=== PATIENT | male | born 1930 | race Caucasian/White ===

== ENCOUNTER → 2016-05-11 | Outpatient (CLI) | payer MEDICARE, OTHER ==
[2016-05-11 11:42] LABS: ALANINE AMINOTRANSFERASE 22 U/L (21-72); ALBUMIN 4.1 g/dL (3.5-5.0); ALKALINE PHOSPHATASE 105 U/L (38-126); ANION GAP 9 (5-19); ASPARTATE AMINO TRANSFERASE 25 U/L (17-59); BILIRUBIN,TOTAL 0.9 mg/dL (0.2-1.3); BLOOD UREA NITROGEN 22 mg/dL (7-20); CALCIUM 9.5 mg/dL (8.4-10.2); CARBON DIOXIDE 32 mmol/L (22-30); CHLORIDE 104 mmol/L (98-107); CHOLESTEROL 106.81 mg/dL (0-200); CREATININE RESULT 0.93 mg/dL (0.52-1.25); Direct HDL 60 mg/dL (>40); GLUCOSE 85 mg/dL (75-110); SODIUM 145.1 mmol/L (137-145); TOTAL PROTEIN 6.5 g/dL (6.3-8.2); TRIGLYCERIDES 49 mg/dL (<150)
[2016-05-11 11:48] LABS: ABSOLUTE EOSINOPHILS # (AUTO) 0.2 10^3/uL (0.0-0.6); ABSOLUTE LYMPHOCYTES (AUTO) 1.8 10^3/uL (0.5-4.7); ABSOLUTE MONOCYTES (AUTO) 0.5 10^3/uL (0.1-1.4); ABSOLUTE NEUT (AUTO) 3.9 10^3/uL (1.7-8.2); BASOPHILS % (AUTO) 0.3 % (0-2); EOSINOPHILS % (AUTO) 3.2 % (0-6); HEMATOCRIT 43.8 % (37.9-51.0); HEMOGLOBIN 14.2 g/dL (13.5-17.0); HGB HCT DIFFERENCE -1.2; LYMPHOCYTES % (AUTO) 27.9 % (13-45); MEAN CORPUSCULAR HEMOGLOBIN 29.8 pg (27.0-33.4); MEAN CORPUSCULAR HGB CONC 32.5 g/dL (32.0-36.0); MEAN CORPUSCULAR VOLUME 92 fl (80-97); MONOCYTES % (AUTO) 7.4 % (3-13); RED BLOOD COUNT 4.77 10^6/uL (4.35-5.55); RED CELL DISTRIBUTION WIDTH 14.5 % (11.5-14.0); SEGMENTED NEUTROPHILS % (AUTO) 61.2 % (42-78); WHITE BLOOD COUNT 6.3 10^3/uL (4.0-10.5)
[2016-05-11 11:53] LABS: DIRECT LDL 36 mg/dL (<100)
== END ==
LOC: OD 09:03
PROVIDERS: ATTEND Internal Medicine
DX: I25.10 Atherosclerotic heart disease of native coronary artery without angina pectoris (principal); E78.00 Pure hypercholesterolemia, unspecified; Z79.899 Other long term (current) drug therapy
CPT/HCPCS: 36415; 80053; 80061; 85025

== ENCOUNTER 2016-06-21 21:53 | Inpatient (IN) | payer MEDICARE, OTHER ==
[2016-06-21] MEDS ORDERED: ACETAMINOPHEN 325 MG TABLET PO ONE (22:13)
--- NOTE | 2016-06-21 22:16 | ER Document Report ---
ED General - General Stated Complaint: FEVER Time seen by provider: 22:15 Notes: Patient is an 85-year-old male that comes to the emergency department by EMS for chief complaint of a fever, fever 101.6 recorded by EMS, EMS gave 650 mg Tylenol. Patient states for almost 1 week he has felt poorly but began running a fever within the past 12 hours. Patient has had a mild cough developing today , denies any other symptoms including vomiting, abdominal pain, chest pain, headache. He states he was constipated but took stool softeners and this resolved. Patient has not had influenza vaccine. Past medical history of [place] with stents, atrial fibrillation, denies history of diabetes. TRAVEL OUTSIDE OF THE [place] IN LAST 30 DAYS: No - Related Data Allergies/Adverse Reactions: No Known Allergies Allergy (Verified 06/22/16 01:57) Home Medications: Current Home Medications Amiodarone HCl [Cordarone 200 mg Tablet] 200 mg PO DAILY 06/22/16 [History] Amlodipine Besylate 5 mg PO DAILY 06/22/16 [History] Apixaban [Eliquis 5 mg Tablet] 5 mg PO BID 06/22/16 [History] Docusate Sodium [Stool Softener] 50 mg PO QHS PRN 06/22/16 [History] Past Medical History - General Information source: Patient - Social History Smoking Status: Never Smoker Frequency of alcohol use: None Drug Abuse: None Lives with: Family Family History: None - Past Medical History Cardiac Medical History: Reports: Hx Heart Attack, Hx Hypertension Pulmonary Medical History: Denies: Hx Asthma Neurological Medical History: Denies: Hx Cerebrovascular Accident, Hx Seizures Renal/ Medical History: Reports: Hx Kidney Stones Malignancy Medical History: 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 Denies: Hx Hepatitis, Hx Ulcer Infectious Medical History: Denies: Hx Hepatitis Past Surgical History: Reports: Hx Cardiac Catheterization - coronary artery stents x3, Hx Open Heart Surgery - HEART CATH. Denies: Hx Pacemaker - Immunizations Hx Diphtheria, Pertussis, Tetanus Vaccination: Yes Review of Systems - Review of Systems Constitutional: See HPI EENT: No symptoms reported Cardiovascular: No symptoms reported Respiratory: See HPI Gastrointestinal: No symptoms reported Genitourinary: No symptoms reported Male Genitourinary: No symptoms reported Musculoskeletal: No symptoms reported Skin: No symptoms reported Hematologic/Lymphatic: No symptoms reported Neurological/Psychological: No symptoms reported Physical Exam - Vital signs Vitals: Temp Pulse Resp BP Pulse Ox 102.1 F H 106 H 19 144/75 H 91 L 06/21/16 22:00 06/21/16 22:00 06/21/16 22:00 06/21/16 22:00 06/21/16 22:00 - General General appearance: Alert Notes: Patient flushed and has very mild tachypnea, otherwise he is responsive, alert, and well-appearing - HEENT Head: Normocephalic, Atraumatic Eyes: Normal Extraocular movements intact: Yes Eyelashes: Normal Pupils: PERRL Sinus: Normal Nasal: Normal Mouth/Lips: Normal Mucous membranes: Normal Pharynx: Normal Neck: Normal - Respiratory Respiratory status: No respiratory distress, Tachypnea - Borderline. No: Respiratory distress, Labored Breath sounds: Nonproductive cough, Other - Scattered coarse breath sounds and a few rhonchi. No: Wheezing - Cardiovascular Rhythm: Regular, Tachycardia Heart sounds: Normal auscultation, S1 appreciated, S2 appreciated - Abdominal Inspection: Normal Tenderness: Nontender. No: Tender, Guarding - Completely soft and benign abdomen - Back Back: Normal. No: Tender - Extremities General upper extremity: Normal inspection, Nontender, Normal strength, Normal temperature General lower extremity: Normal inspection, Nontender, Normal strength, Normal temperature - Neurological Neuro grossly intact: Yes Cognition: Normal Orientation: AAOx4. 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 placing on nasal cannula because of patient being hypoxic at about 90-91% on room air. Patient clinically appears to have pneumonia with rhonchi, fever, cough, however chest x-ray is unremarkable, CBC shows mild elevation of neutrophils but no leukocytosis. CBC and chemistry generally unremarkable otherwise. Lactic acid is not elevated, blood cultures pending. Patient given Levaquin antibiotic. Patient looks improved on reevaluation, however if the nasal cannula is removed he becomes hypoxic again, down to 89%. Patient is also very weak though he does not appear to be in any distress. He is denying any current symptoms. Discussed with Dr. Marie per [facility] protocol. Discussed with Dr. Romero, internal medicine, patient will be admitted to the hospital. - Vital Signs Vital signs: Temp Pulse Resp BP Pulse Ox 101.3 F H 106 H 27 H 119/42 L 95 06/21/16 23:44 06/21/16 22:00 06/22/16 01:31 06/22/16 01:31 06/22/16 01:31 - Laboratory Result Diagrams: 06/21/16 22:26 06/22/16 00:15 Laboratory results interpreted by me: 06/21/16 06/21/16 06/21/16 22:26 22:26 22:57 Hgb 13.0 L RDW 14.5 H Plt Count 145 L Seg Neutrophils % 80.2 H Lymphocytes % 8.5 L PT 18.7 H VBG pH Total Protein Albumin Urine Protein 30 H Urine Urobilinogen 4.0 H 06/22/16 06/22/16 00:15 00:15 Hgb RDW Plt Count Seg Neutrophils % Lymphocytes % PT VBG pH 7.46 H Total Protein 5.6 L Albumin 3.3 L Urine Protein Urine Urobilinogen Discharge - Discharge Clinical Impression: Cough, Hypoxia Fever Qualifiers: Fever type: unspecified Qualified Code(s): R50.9 - Fever, unspecified Condition: Stable Disposition: ADMITTED INPATIENT Admitting Provider: Hospitalist Unit Admitted: Telemetry
[2016-06-21 22:45] LABS: ABSOLUTE EOSINOPHILS # (AUTO) 0.1 10^3/uL (0.0-0.6); ABSOLUTE LYMPHOCYTES (AUTO) 0.6 10^3/uL (0.5-4.7); ABSOLUTE MONOCYTES (AUTO) 0.7 10^3/uL (0.1-1.4); ABSOLUTE NEUT (AUTO) 5.8 10^3/uL (1.7-8.2); BASOPHILS % (AUTO) 0.6 % (0-2); EOSINOPHILS % (AUTO) 1.3 % (0-6); LYMPHOCYTES % (AUTO) 8.5 % (13-45); MEAN CORPUSCULAR HEMOGLOBIN 29.5 pg (27.0-33.4); MEAN CORPUSCULAR HGB CONC 32.4 g/dL (32.0-36.0); MEAN CORPUSCULAR VOLUME 91 fl (80-97); MONOCYTES % (AUTO) 9.4 % (3-13); RED CELL DISTRIBUTION WIDTH 14.5 % (11.5-14.0); SEGMENTED NEUTROPHILS % (AUTO) 80.2 % (42-78); WHITE BLOOD COUNT 7.3 10^3/uL (4.0-10.5)
[2016-06-21 22:55] LABS: PROTHROMBIN TIME 18.7 SEC (11.4-15.4)
[2016-06-21] MEDS ORDERED: LEVOFLOXACIN 750 MG/D5W RTU 150 ML IV ONE (23:04)
[2016-06-21 23:27] LABS: APPEARANCE,URINE CLOUDY; BILIRUBIN,URINE NEGATIVE (NEGATIVE); GLUCOSE, URINE NEGATIVE (NEGATIVE); KETONES,URINE NEGATIVE (NEGATIVE); LEUKOCYTE ESTERASE,URINE NEGATIVE (NEGATIVE); NITRITE,URINE NEGATIVE (NEGATIVE); PROTEIN,URINE 30 mg/dL (NEGATIVE); URINE SPECIFIC GRAVITY 1.014
--- NOTE | 2016-06-21 23:48 | EKG REPORT ---
SEVERITY:- OTHERWISE NORMAL ECG - SINUS TACHYCARDIA MINIMAL ST DEPRESSION, LATERAL LEADS : Confirmed by: Janina Wallace 21-Jun-2016 23:47:17
[2016-06-22 00:30] LABS: VENOUS BLOOD BASE EXCESS 3.4 mmol/L; VENOUS BLOOD HCO3 27.4 mmol/L (20-32); VENOUS BLOOD PCO2 39.7 mmHg (35-63); VENOUS BLOOD PH 7.46 (7.30-7.42)
[2016-06-22 00:43] LABS: ALANINE AMINOTRANSFERASE 34 U/L (21-72); ALBUMIN 3.3 g/dL (3.5-5.0); ALKALINE PHOSPHATASE 83 U/L (38-126); ANION GAP 8 (5-19); ASPARTATE AMINO TRANSFERASE 22 U/L (17-59); BILIRUBIN,TOTAL 0.8 mg/dL (0.2-1.3); BLOOD UREA NITROGEN 15 mg/dL (7-20); CALCIUM 8.8 mg/dL (8.4-10.2); CARBON DIOXIDE 27 mmol/L (22-30); CHLORIDE 104 mmol/L (98-107); CREATININE RESULT 0.93 mg/dL (0.52-1.25); GLUCOSE 103 mg/dL (75-110); POTASSIUM 4.4 mmol/L (3.6-5.0); SODIUM 138.7 mmol/L (137-145); TOTAL PROTEIN 5.6 g/dL (6.3-8.2)
[2016-06-22] MEDS ORDERED: NORMAL SALINE 1000 ML 500 ML IV ONE (01:26)
--- NOTE | 2016-06-22 03:48 | PDOC H&P ---
History of Present Illness Admission Date/PCP: 06/22/16 02:17 Sim[facility] [place] Patient complains of: fever History of Present Illness: TONY MANE is a 85 year old male, with underlying atrial fibrillation, on Eliquis for same, coronary artery disease, having undergone implantation of 3 stents in the past, hypertension, arthritis, distant history of peptic ulcer disease, and history of nephrolithiasis, easy bruising, but without known chronic pulmonary disease who presents to the emergency room for evaluation of above complaint. [place] "poorly" for the past week, but over the last day or so, has run a subjective fever. 101.6 recorded by EMS, with 650 mg of Tylenol given. Mildly productive cough over the last 24 hours but otherwise, no specific complaints including nausea vomiting, chest or abdominal pain, or headache. No specific sick contacts. Has not had a flu vaccination. No hospitalization in the 3 months. Took a Z-Shaun, perhaps in the last 3 months, for an episode of sinusitis. Patient has been discussed with emergency room nurse practitioner who evaluated the patient. . Laboratory results are listed in [facility] and are reviewed. X-ray summary results are listed below, with full report(s) reviewed. . EKG reviewed. Social history/personal habits: . Lives at home with , who has dementia. Retired. No use of alcohol tobacco or illicit drugs. Allergies/adverse reactions NKDA. Home medications are reviewed by bottle review and have been reconciled by nursing staff in [facility]. Home medications initially autopopulated into [facility] may not accurately reflect patient's true medications, dosages, and/or frequencies. REVIEW OF SYSTEMS: Constitutional: See history and present illness. Eyes: Wears glasses. ENT: No swallowing problems or complaints. Partial hearing loss. Pulmonary: See history and present illness. Cardiovascular: No current complaints, including chest pain. Gastrointestinal: No current complaints, including nausea or vomiting. Skin: No current complaints, including rashes. Hematologic: Easy bruising. Neurologic: No current complaints, including numbness or tingling. Musculoskeletal: Joint pain from arthritis. Psychiatric: No current complaints, including anxiety or depression. Endocrine: No current complaints, including polyuria. Genitourinary: No current complaints, including dysuria. PHYSICAL EXAMINATION: 5 feet 6 inches tall. 83 kg. BMI 29.5 kg/m. Temperature 101.3. 134/72. Pulse 68 and regular. Respirations are 28 and unlabored. O2 saturation 88-93% on 3 L oxygen per nasal cannula. Slightly overweight otherwise well-nourished well-developed elderly male appearing approximately his stated age. Pleasant awake alert and cooperative. Appears not to feel very well. Mildly anxious, without agitation. 2 daughters are present at his side; patient approves. Skin is warm and dry. No grossly obvious evidence of rash in areas of skin examined. No subcutaneous nodules palpated. ENT: Perhaps Mildly hard of hearing to normal conversation. Tongue midline on protrusion pink and slightly tacky. Eyes: No scleral icterus. Pupils equal and reactive to light at 4 mm. [place] conjunctivae. Neck is supple and nontender to gentle active range of motion and palpation. Midline trachea. No palpable thyroid nodule mass enlargement or tenderness. Lymphatic: No palpable cervical or clavicular nodes. Neck and lymphatic exams limited by patient body habitus. Psychiatric: Reasonable insight into acute and chronic medical issues. Oriented to time location and why here. Lungs: Auscultation reveals equal breath sounds bilaterally. No use of accessory respiratory muscles. Slightly coarse breath sounds bilaterally, perhaps a bit more pronounced on the left. Cardiovascular: Heart regular rate and rhythm, without gallop murmur or rub. No carotid or abdominal aortic bruits. Very mild symmetric nonpitting ankle and pedal edema. Faintly palpable dorsalis pedis pulses. Abdomen: soft, , slightly distended nontender with positive bowel sounds. Unable to adequately evaluate abdomen for masses or organomegaly due to distention. Extremities: Feet are warm and dry. No calf tenderness to compression. No grossly obvious visual evidence of calf swelling. Gentle manipulation of lower extremities fails to reveal any obvious evidence of injury or instability to knees hips or ankles. Neurologic: Moves upper extremities grossly normally. Patellar reflexes absent. Absent Babinski. Light touch is intact at feet. Dorsiflexion and plantarflexion of feet 5 / 5 and symmetric. Past Medical History Cardiac Medical History: Reports: Atrial Fibrillation, Coronary Artery Disease, Myocardial Infarction, Hypertension Denies: Congestive Heart Failure, DVT, Pulmonary Embolism Pulmonary Medical History: Denies: Asthma, Chronic Obstructive Pulmonary Disease (COPD) EENT Medical History: Reports: Eyes - Glasses, Ears - Hearing aids Denies: Throat Neurological Medical History: Denies: Hemorrhagic CVA, Ischemic CVA, Seizures Endocrine Medical History: Denies: Diabetes Mellitus Type 1, Diabetes Mellitus Type 2, Hyperthyroidism, Hypothyroidism Renal/ Medical History: Reports: Nephrolithiasis - History of same. Patient thinks he in the recent past may have passed a kidney stone, with some discomfort and a small amount of bright red blood on his underwear. Daughters are aware. Malignancy Medical History: Reports: Skin Cancer - basal cell GI Medical History: Reports: Hiatal Hernia, Peptic Ulcer Disease - Quite distant history of bleeding peptic ulcer. Denies: Cirrhosis, Hepatitis Musculoskeltal Medical History: Reports: Arthritis Skin Medical History: Reports: Other - Skin cancer. Psychiatric Medical History: Denies: Alcohol Dependency, Depression, General Anxiety Disorder, Substance Abuse, Tobacco Dependency Hematology: Reports: Other - Easy bruising. Denies: Anemia, Sickle Cell Disease Infectious Medical History: Denies: Hepatitis B, Hepatitis C Past Surgical History Past Surgical History: Reports: Cardiac Catheterization - coronary artery stents x3 Social History Information Source: Patient, Relative, Emergency Med Personnel, [facility] Records Lives with: Spouse/Significant other Smoking Status: Never Smoker Frequency of Alcohol Use: None Drugs: None - Advance Directive Resuscitation Status: Full Code Surrogate healthcare decision maker:: Daughters Family History Family History: None Parental Family History Reviewed: Yes Children Family History Reviewed: Yes Sibling(s) Family History Reviewed.: Yes Medication/Allergy Home Medications: Amiodarone HCl [Cordarone 200 mg Tablet] 200 mg PO DAILY 06/22/16 Amlodipine Besylate [Norvasc 5 mg Tablet] 5 mg PO DAILY 06/22/16 Apixaban [Eliquis 5 mg Tablet] 5 mg PO BID 06/22/16 Aspirin [Aspirin 81 mg Chewable Tablet] 81 mg PO DAILY 06/22/16 Docusate Sodium [Colace 100 mg Capsule] 200 mg PO QHS 06/22/16 Allergies/Adverse Reactions: tramadol Adverse Reaction (Verified 06/26/16 15:02) Delirium Physical Exam Vital Signs: Temp Pulse Resp BP Pulse Ox 101.3 F H 106 H 27 H 119/42 L 95 06/21/16 23:44 06/21/16 22:00 06/22/16 01:31 06/22/16 01:31 06/22/16 01:31 Results Impressions: Chest X-Ray 06/21/16 22:13 IMPRESSION: CHRONIC CHANGES. PROBABLE ATELECTASIS VERSUS SCARRING IN THE LEFT MID LUNG. NO DEFINITE ACUTE FINDINGS. Assessment & Plan - Diagnosis (1) Pneumonia involving left lung Qualifiers: Pneumonia type: due to unspecified organism Lung location: unspecified part of lung Qualified Code(s): J18.9 - Pneumonia, unspecified organism Is this a current diagnosis for this admission?: YesPlan: Patient will be admitted under pneumonia protocol. Incentive spirometry twice a day. PRN DuoNeb's. Antibiotics will consist of intravenous Zithromax and Rocephin.. I strongly encouraged patient to notify staff should patient feel that respiratory status is worsening. Patient is a full code. I have strongly encouraged patient not to get out of bed without notifying staff , , to avoid a fall with injury. Knee high SCDs for DVT prophylaxis; with patient on Eliquis, no need for Lovenox or heparin. Impression and plans were discussed with patient, and daughters, all of whom concur. Time spent in evaluation and management of patient: 68 minutes. (2) Anticoagulated Is this a current diagnosis for this admission?: YesPlan: Resume home medications as appropriate once these have been reviewed. (3) Atrial fibrillation Qualifiers: Atrial fibrillation type: unspecified Qualified Code(s): I48.91 - Unspecified atrial fibrillation Is this a current diagnosis for this admission?: YesPlan: Hemodynamically stable at present.Resume home medications as appropriate once these have been reviewed. (4) CAD (coronary artery disease) Qualifiers: Coronary Disease-Associated Artery/Lesion type: [place] artery [place] vs. transplanted heart: [place] heart Associated angina: without angina Qualified Code(s): I25.10 - Atherosclerotic heart disease of [place] coronary artery without angina pectoris Is this a current diagnosis for this admission?: YesPlan: Resume home medications as appropriate once these have been reviewed. - Inpatient Certification Based on my medical assessment, after consideration of the patient's comorbidities, presenting symptoms, or acuity I expect that the services needed warrant INPATIENT care.: Yes I certify that my determination is in accordance with my understanding of Medicare's requirements for reasonable and necessary INPATIENT services [42 CFR 412.3e].: Yes Medical Necessity: Need Close Monitoring Due to Risk of Patient Decompensation, Need For Continuous Telemetry Monitoring, Need for Nebulizer Therapy and Monitoring of Response, Need for IV Antibiotics, Risk of Complication if Not Cared For in Hospital, Risk of Diagnosis Which Will Require Inpatient Eval/Care/ Monitoring Post Hospital Care: D/C or Transfer Summary
[2016-06-22] MEDS ORDERED: SUCCINYLCHOLINE CHLORIDE INJ 200 MG/10 ML VIAL ONE (07:54)
[2016-06-22 09:42] LABS: PROTHROMBIN TIME 19.8 SEC (11.4-15.4)
[2016-06-22] MEDS ORDERED: AMIODARONE HCL 200 MG TABLET PO SCH (10:00)
[2016-06-22] MEDS ORDERED: ASPIRIN 81 MG TABLET, CHEWABLE PO SCH (10:00)
[2016-06-22] MEDS ORDERED: AMLODIPINE BESYLATE 5 MG TABLET PO SCH (10:00)
[2016-06-22] MEDS ORDERED: NORMAL SALINE 1000 ML 1,000 ML IV PRN ×2 (12:41→19:46)
[2016-06-22] MEDS: ACETAMINOPHEN 325 MG TABLET PO PRN ×2 (13:04→18:20)
[2016-06-22] MEDS: LEVALBUTEROL HCL NEB 1.25 MG/3 ML AMPUL NEB PRN ×2 (13:51→19:22)
[2016-06-22] MEDS: DOCUSATE SODIUM 100 MG CAPSULE PO SCH ×2 (14:18→17:44)
[2016-06-22] MEDS ORDERED: AZITHROMYCIN 500 MG in DEXTROSE 5%-WATER 250 ML IV ONE (16:00)
[2016-06-22] MEDS ORDERED: APIXABAN 5 MG TABLET PO SCH (18:00)
[2016-06-22] MEDS ORDERED: CEFTRIAXONE 1 GM/D5W RTU 1 GM/50 ML RTUPB IV SCH (18:00)
[2016-06-22] MEDS ORDERED: IBUPROFEN 600 MG TABLET PO PRN (18:59)
[2016-06-22] MEDS ORDERED: FUROSEMIDE INJ/PF 40 MG/4 ML SDV ONE (19:17)
[2016-06-22] MEDS ORDERED: LORAZEPAM INJ 2 MG/1 ML VIAL IV PRN (19:25)
[2016-06-22] MEDS ORDERED: LORAZEPAM INJ 2 MG/1 ML VIAL ONE (19:26)
--- NOTE | 2016-06-22 19:51 | Progress Note ---
Provider Note Provider Note: Patient newly admitted for pneumonia, developed high fever and seizure-like activity requiring rapid response. Patient noted with chest congestion as well and temperature was 104-105 reported by a rectal probe. Patient given Tylenol as well as ibuprofen, placed on cooling blanket, intravenous Ativan as needed for seizure-like activity, and one dose of Lasix. IV fluid increased. CT of the head without contrast ordered. Patient transferred to the intensive care unit. He is on anticoagulant and this was held.
[2016-06-22] MEDS ORDERED: FUROSEMIDE INJ/PF 40 MG/4 ML SDV IV ONE (20:00)
[2016-06-22] MEDS ORDERED: MIDAZOLAM HCL 100 ML IV ONE (21:38)
[2016-06-22] MEDS ORDERED: ALBUTEROL SULFATE 0.083% NEB 2.5 MG/3 ML AMPUL NEB PRN (21:52)
[2016-06-22] MEDS ORDERED: AMLODIPINE BESYLATE 5 MG TABLET NG SCH (21:54)
[2016-06-22] MEDS ORDERED: PROPOFOL INJ 200 MG/20 ML VIAL IV ONE (21:54)
[2016-06-22] MEDS ORDERED: APIXABAN 5 MG TABLET NG SCH (21:58)
[2016-06-22] MEDS ORDERED: DOXYCYCLINE HYCLATE 100 MG in DEXTROSE 5%-WATER 250 ML IV SCH (22:00)
[2016-06-22] MEDS ORDERED: GUAIFENESIN 600 MG TABLET.SA PO SCH (22:00)
[2016-06-22] MEDS ORDERED: DOCUSATE SODIUM 100 MG CAPSULE PO SCH (22:00)
[2016-06-22] MEDS ORDERED: PHARMACY COMMUNICATION ORDER MC NR (22:00)
[2016-06-22 22:10] LABS: ARTERIAL BLOOD BASE EXCESS -3.5 mmol/L; ARTERIAL BLOOD O2 SATURATION 96.8 % (94-98)
[2016-06-22] MEDS ORDERED: VANCOMYCIN HCL 0 MG in DEXTROSE 5%-WATER 250 ML IV NR (22:15)
[2016-06-22] MEDS ORDERED: PIPERACILLIN/TAZOBACTAM 4.5 GM VIAL IV PRN (22:27)
[2016-06-22 22:31] LABS: HEMATOCRIT 37.8 % (37.9-51.0); HEMOGLOBIN 12.4 g/dL (13.5-17.0); HGB HCT DIFFERENCE -0.6; MEAN CORPUSCULAR HEMOGLOBIN 29.9 pg (27.0-33.4); MEAN CORPUSCULAR HGB CONC 32.8 g/dL (32.0-36.0); MEAN CORPUSCULAR VOLUME 91 fl (80-97); RED BLOOD COUNT 4.14 10^6/uL (4.35-5.55); RED CELL DISTRIBUTION WIDTH 14.3 % (11.5-14.0)
[2016-06-22] MEDS ORDERED: VANCOMYCIN HCL INJ 1000 MG VIAL IV PRN (22:37)
[2016-06-22] MEDS ORDERED: VANCOMYCIN HCL INJ 500 MG VIAL IV PRN (22:37)
[2016-06-22 22:43] LABS: ANION GAP 13 (5-19); BLOOD UREA NITROGEN 16 mg/dL (7-20); CALCIUM 8.5 mg/dL (8.4-10.2); CARBON DIOXIDE 24 mmol/L (22-30); CHLORIDE 99 mmol/L (98-107); CREATINE KINASE 356 U/L (55-170); CREATININE RESULT 1.01 mg/dL (0.52-1.25); GLUCOSE 110 mg/dL (75-110); MAGNESIUM 1.9 mg/dL (1.6-2.3); SODIUM 135.5 mmol/L (137-145)
[2016-06-22 22:55] LABS: BAND NEUTROPHILS % (MANUAL) 2 % (3-5); BASOPHILS % (MANUAL) 0 % (0-2); CREATINE KINASE MB 1.66 ng/mL (<4.55); EOSINOPHILS % (MANUAL) 0 % (0-6); LYMPHOCYTES % (MANUAL) 9 % (13-45); TOTAL CELLS COUNTED 100; TOXIC VACUOLATION PRESENT
[2016-06-22 22:57] LABS: TROPONIN I 0.128 ng/mL
[2016-06-22] MEDS ORDERED: LEVOFLOXACIN 750 MG/D5W RTU 750 MG/150 ML RTUPB IV ONE (23:00)
[2016-06-22] MEDS: FAMOTIDINE INJ/PF 20 MG/2 ML SDV IV SCH (23:08)
[2016-06-22] MEDS: DEXTROSE 5%-NORMAL SALINE 1,000 ML IV PRN (23:09)
[2016-06-22] MEDS: MIDAZOLAM HCL 100 ML IV PRN (23:10)
--- NOTE | 2016-06-22 23:19 | Progress Note ---
Provider Note Provider Note: 06/22/2016: Called to see patient by his intensive care unit nurse concerning respiratory distress along with possible seizure activity with tremors. Went to the bedside shortly thereafter. Increased work of breathing. 90% saturation on nonrebreather mask. Rhonchorous breath sounds. Tachypnea, into the 30+ range. Intermittent pronounced tremors of both upper and lower extremities. However, patient did answer basic questions appropriately during these episodes. Decision made to proceed with endotracheal intubation. Performed by STAFF SERVICES MANAGER shortly thereafter. Prior to intubation, I did discuss plans, and rationale for same, with multiple family members, including daughter with blonde hair, in intensive care unit waiting room. They agreed with plans. Postintubation, daughter at bedside. Told her my concern is that of worsening pneumonia. Hemodynamically stable at present time, not requiring vasopressor. 50 minutes critical care time spent in direct patient evaluation, chart review, entering of multiple orders into the electronic health record, chest x-ray review, discussions with nursing staff. Chest x-ray report pending. Discussions with family.
--- NOTE | 2016-06-22 23:36 | EKG REPORT ---
SEVERITY:- ABNORMAL ECG - ATRIAL FIBRILLATION REPOL ABNRM SUGGESTS ISCHEMIA, DIFFUSE LEADS : Confirmed by: Janina Wallace 22-Jun-2016 23:36:05
[2016-06-22] MEDS ORDERED: MIDAZOLAM HCL 100 ML IV PRN (23:57)
[2016-06-23] MEDS ORDERED: VANCOMYCIN HCL 1,500 MG in DEXTROSE 5%-WATER 250 ML IV ONE ×2
[2016-06-23] MEDS ORDERED: VANCOMYCIN HCL INJ 500 MG VIAL ONE (00:53)
[2016-06-23] MEDS ORDERED: VANCOMYCIN HCL INJ 1000 MG VIAL ONE (00:53)
[2016-06-23] MEDS ORDERED: PIPERACILLIN/TAZOBACTAM 4.5 GM VIAL IV ONE (01:02)
[2016-06-23] MEDS: PIPERACILLIN SODIUM/TAZOBACTAM 4.5 GM in NORMAL SALINE 100 ML IV SCH ×4 (01:07→17:56)
[2016-06-23 02:25] LABS: ARTERIAL BLOOD BASE EXCESS 2.4 mmol/L; ARTERIAL BLOOD O2 SATURATION 98.1 % (94-98)
[2016-06-23] MEDS: IPRATROPIUM/ALBUTEROL 0.5-2.5 MG/3 ML AMPUL NEB SCH ×4 (02:55→20:44)
[2016-06-23] MEDS ORDERED: PROPOFOL 100 ML IV ONE (03:42)
[2016-06-23] MEDS ORDERED: PROPOFOL 100 ML IV PRN (03:47)
[2016-06-23] MEDS: ACETAMINOPHEN 325 MG TABLET NG PRN ×3 (04:33→21:26)
[2016-06-23 05:14] LABS: ANION GAP 7 (5-19); BLOOD UREA NITROGEN 17 mg/dL (7-20); CALCIUM 8.1 mg/dL (8.4-10.2); CARBON DIOXIDE 28 mmol/L (22-30); CHLORIDE 99 mmol/L (98-107); CREATININE RESULT 0.97 mg/dL (0.52-1.25); GLUCOSE 128 mg/dL (75-110); POTASSIUM 3.7 mmol/L (3.6-5.0); SODIUM 134.3 mmol/L (137-145)
[2016-06-23 05:31] LABS: ABSOLUTE LYMPHOCYTES (AUTO) 1.2 10^3/uL (0.5-4.7); ABSOLUTE MONOCYTES (AUTO) 0.5 10^3/uL (0.1-1.4); ABSOLUTE NEUT (AUTO) 7.8 10^3/uL (1.7-8.2); BASOPHILS % (AUTO) 0.2 % (0-2); HEMATOCRIT 35.3 % (37.9-51.0); HEMOGLOBIN 11.7 g/dL (13.5-17.0); HGB HCT DIFFERENCE -0.2; LYMPHOCYTES % (AUTO) 12.7 % (13-45); MEAN CORPUSCULAR HEMOGLOBIN 30.1 pg (27.0-33.4); MEAN CORPUSCULAR HGB CONC 33.1 g/dL (32.0-36.0); MEAN CORPUSCULAR VOLUME 91 fl (80-97); MONOCYTES % (AUTO) 4.9 % (3-13); RED BLOOD COUNT 3.89 10^6/uL (4.35-5.55); RED CELL DISTRIBUTION WIDTH 14.3 % (11.5-14.0); SEGMENTED NEUTROPHILS % (AUTO) 82.2 % (42-78); WHITE BLOOD COUNT 9.5 10^3/uL (4.0-10.5)
[2016-06-23] MEDS ORDERED: LANSOPRAZOLE 30 MG TAB.RAP.DR NG SCH (06:00)
[2016-06-23] MEDS ORDERED: LANSOPRAZOLE 30 MG TAB.RAP.DR PO SCH (06:00)
[2016-06-23] MEDS: MIDAZOLAM HCL 100 ML IV PRN ×3 (08:08→16:21)
[2016-06-23] MEDS ORDERED: AMLODIPINE BESYLATE 5 MG TABLET PO SCH (10:00)
[2016-06-23] MEDS ORDERED: AZITHROMYCIN 500 MG in DEXTROSE 5%-WATER 250 ML IV SCH (10:00)
[2016-06-23] MEDS ORDERED: AMIODARONE HCL 200 MG TABLET PO SCH (10:00)
[2016-06-23] MEDS ORDERED: APIXABAN 5 MG TABLET NG SCH (10:00)
[2016-06-23] MEDS ORDERED: ASPIRIN 81 MG TABLET, CHEWABLE PO SCH (10:00)
[2016-06-23] MEDS: AMLODIPINE BESYLATE 5 MG TABLET NG SCH (10:19)
[2016-06-23] MEDS: FAMOTIDINE INJ/PF 20 MG/2 ML SDV IV SCH ×2 (10:20→21:25)
[2016-06-23] MEDS: ASPIRIN 81 MG TABLET, CHEWABLE NG SCH (10:20)
[2016-06-23] MEDS: AMIODARONE HCL 200 MG TABLET NG SCH (10:20)
[2016-06-23] MEDS: DEXTROSE 5%-NORMAL SALINE 1,000 ML IV PRN (11:32)
[2016-06-23] MEDS: VANCOMYCIN HCL 750 MG in DEXTROSE 5%-WATER 250 ML IV SCH (12:33)
--- NOTE | 2016-06-23 14:13 | PDOC PROGRESS REPORT ---
Subjective Progress Note for:: 06/23/16 Subjective:: Patient is intubated and sedated Physical Exam Vital Signs: Temp Pulse Resp BP Pulse Ox 99.0 F 97 15 130/64 H 91 L 06/23/16 12:00 06/23/16 12:00 06/23/16 12:24 06/23/16 12:24 06/23/16 13:23 Intake & Output 06/22/16 06/23/16 06/24/16 06:59 06:59 06:59 Intake Total 1644 Output Total 1150 900 Balance 494 -900 Weight 87.2 kg General appearance: PRESENT: no acute distress Eye exam: PRESENT: conjunctiva pink. ABSENT: scleral icterus Mouth exam: PRESENT: moist, tongue midline Neck exam: ABSENT: carotid bruit, JVD, lymphadenopathy, thyromegaly Respiratory exam: PRESENT: decreased breath sounds - Bilateral basilar decreased breath sounds. ABSENT: rales, rhonchi, wheezes Cardiovascular exam: PRESENT: RRR. ABSENT: diastolic murmur, rubs, systolic murmur GI/Abdominal exam: PRESENT: normal bowel sounds, soft. ABSENT: distended, guarding, mass, organolmegaly, rebound, tenderness Extremities exam: ABSENT: calf tenderness, clubbing, pedal edema Neurological exam: PRESENT: other - Intubated and sedated Psychiatric exam: PRESENT: other - Unable to assess Skin exam: PRESENT: dry, intact, warm. ABSENT: cyanosis, rash Results Laboratory Results: 06/23/16 04:46 06/23/16 04:46 06/22/16 06/22/16 06/22/16 21:50 22:20 22:20 WBC 11.0 H RBC 4.14 L Hgb 12.4 L Hct 37.8 L MCV 91 MCH 29.9 MCHC 32.8 RDW 14.3 H Plt Count 104 L Seg Neutrophils % Not Reportable Lymphocytes % Not Reportable Monocytes % Not Reportable Eosinophils % Not Reportable Basophils % Not Reportable Absolute Neutrophils Not Reportable Absolute Lymphocytes Not Reportable Absolute Monocytes Not Reportable Absolute Eosinophils Not Reportable Absolute Basophils Not Reportable Carbonic Acid 1.47 H HCO3/H2CO3 Ratio 15:1 ABG pH 7.30 L ABG pCO2 48.7 H ABG pO2 99.1 ABG HCO3 23.3 ABG O2 Saturation 96.8 ABG Base Excess -3.5 FiO2 100% Sodium 135.5 L Potassium 4.0 Chloride 99 Carbon Dioxide 24 Anion Gap 13 BUN 16 Creatinine 1.01 Est GFR ( Amer) > 60 Est GFR (Non-Af Amer) > 60 Glucose 110 Calcium 8.5 Magnesium 1.9 06/23/16 06/23/16 06/23/16 02:15 04:46 04:46 WBC 9.5 RBC 3.89 L Hgb 11.7 L Hct 35.3 L MCV 91 MCH 30.1 MCHC 33.1 RDW 14.3 H Plt Count 89 L Seg Neutrophils % 82.2 H Lymphocytes % 12.7 L Monocytes % 4.9 Eosinophils % 0.0 Basophils % 0.2 Absolute Neutrophils 7.8 Absolute Lymphocytes 1.2 Absolute Monocytes 0.5 Absolute Eosinophils 0.0 Absolute Basophils 0.0 Carbonic Acid 1.26 HCO3/H2CO3 Ratio 21:1 ABG pH 7.43 ABG pCO2 41.7 ABG pO2 110.5 H ABG HCO3 27.0 H ABG O2 Saturation 98.1 H ABG Base Excess 2.4 FiO2 50% Sodium 134.3 L Potassium 3.7 Chloride 99 Carbon Dioxide 28 Anion Gap 7 BUN 17 Creatinine 0.97 Est GFR ( Amer) > 60 Est GFR (Non-Af Amer) > 60 Glucose 128 H Calcium 8.1 L Magnesium 06/22/16 06/22/16 06/23/16 22:20 22:20 04:46 Creatine Kinase 356 H CK-MB (CK-2) 1.66 Troponin I 0.128 0.150 NT-Pro-B Natriuret Pep 63173 H Impressions: Chest X-Ray 06/22/16 00:00 IMPRESSION: 1. LIFE LINES DESCRIBED IN APPROPRIATE POSITION. 2. INTERVAL DEVELOPMENT OF DIFFUSE PULMONARY INFILTRATES, LEFT GREATER THAN RIGHT. DIFFERENTIAL INCLUDES PNEUMONIA AND/OR ASYMMETRIC PULMONARY EDEMA. Head CT 06/23/16 00:00 IMPRESSION: No acute findings. Lines and tubes. Assessment & Plan - Diagnosis (1) Acute respiratory failure Is this a current diagnosis for this admission?: YesPlan: Secondary to pneumonia. The patient decompensated overnight and required being moved to intensive care unit and was intubated. (2) Elevated troponin Is this a current diagnosis for this admission?: YesPlan: Most likely secondary to the stress of the underlying illness. (3) Pneumonia involving left lung Qualifiers: Pneumonia type: due to unspecified organism Lung location: unspecified part of lung Qualified Code(s): J18.9 - Pneumonia, unspecified organism Is this a current diagnosis for this admission?: YesPlan: Patient is on vancomycin, Levaquin and Zosyn. We'll continue to monitor his cultures. (4) Atrial fibrillation Qualifiers: Atrial fibrillation type: unspecified Qualified Code(s): I48.91 - Unspecified atrial fibrillation Is this a current diagnosis for this admission?: YesPlan: Patient is currently rate control. Continue the amiodarone. (5) Anticoagulated Is this a current diagnosis for this admission?: YesPlan: Patient is on Eliquis for anticoagulation (6) CAD (coronary artery disease) Qualifiers: Coronary Disease-Associated Artery/Lesion type: [place] artery [place] vs. transplanted heart: [place] heart Associated angina: without angina Qualified Code(s): I25.10 - Atherosclerotic heart disease of [place] coronary artery without angina pectoris Is this a current diagnosis for this admission?: YesPlan: He has a positive troponins but this most likely secondary to the underlying pneumonia. - Time Time Spent with patient: 25-34 minutes - Inpatient Certification Medical Necessity: Need Close Monitoring Due to Risk of Patient Decompensation, Need for IV Antibiotics
--- NOTE | 2016-06-23 14:22 | PDOC CONSULTATION ---
Consultation Consult Date: 06/23/16 Attending physician:: ZACHARIAH GRANT Consult reason:: resp fail History of Present Illness Admission Date/PCP: 06/22/16 12:41 History of Present Illness: Patient intubated and sedated all information from chart. TONY MANE is a 85 year old male, with underlying atrial fibrillation, on Eliquis for same, coronary artery disease, having undergone implantation of 3 stents in the past, hypertension, arthritis, distant history of peptic ulcer disease, and history of nephrolithiasis, easy bruising, but without known chronic pulmonary disease who presents to the emergency room for evaluation of above complaint. [place] "poorly" for the past week, but over the last day or so, has run a subjective fever. 101.6 recorded by EMS, with 650 mg of Tylenol given. Mildly productive cough over the last 24 hours but otherwise, no specific complaints including nausea vomiting, chest or abdominal pain, or headache. Past Medical History Cardiac Medical History: Reports: Atrial Fibrillation, Coronary Artery Disease, Myocardial Infarction, Hypertension Denies: Congestive Heart Failure, DVT, Pulmonary Embolism Pulmonary Medical History: Denies: Asthma, Chronic Obstructive Pulmonary Disease (COPD) EENT Medical History: Reports: Eyes - Glasses, Ears - Hearing aids, Other - Easy bruising. Denies: Throat Neurological Medical History: Denies: Hemorrhagic CVA, Ischemic CVA, Seizures Endocrine Medical History: Denies: Diabetes Mellitus Type 1, Diabetes Mellitus Type 2, Hyperthyroidism, Hypothyroidism Renal/ Medical History: Reports: Nephrolithiasis - History of same. Patient thinks he in the recent past may have passed a kidney stone, with some discomfort and a small amount of bright red blood on his underwear. Daughters are aware. Malignancy Medical History: Reports: Skin Cancer - basal cell GI Medical History: Reports: Hiatal Hernia, Peptic Ulcer Disease - Quite distant history of bleeding peptic ulcer. Denies: Cirrhosis, Hepatitis Musculoskeltal Medical History: Reports: Arthritis Skin Medical History: Reports: Other - Skin cancer. Psychiatric Medical History: Denies: Alcohol Dependency, Depression, General Anxiety Disorder, Substance Abuse, Tobacco Dependency Hematology: Reports: Other - Easy bruising. Denies: Anemia, Sickle Cell Disease Infectious Medical History: Denies: Hepatitis B, Hepatitis C Past Surgical History Past Surgical History: Reports: Cardiac Catheterization - coronary artery stents x3 Denies: Pacemaker Social History Information Source: [facility] Records Lives with: Spouse/Significant other Smoking Status: Never Smoker Frequency of Alcohol Use: None Hx Recreational Drug Use: No Drugs: None Hx Prescription Drug Abuse: No - Advance Directive Resuscitation Status: Full Code Family History Family History: None Parental Family History Reviewed: No Children Family History Reviewed: No Sibling(s) Family History Reviewed.: No Medication/Allergy Home Medications: Amiodarone HCl [Cordarone 200 mg Tablet] 200 mg PO DAILY 06/22/16 Amlodipine Besylate [Norvasc 5 mg Tablet] 5 mg PO DAILY 06/22/16 Apixaban [Eliquis 5 mg Tablet] 5 mg PO BID 06/22/16 Aspirin [Aspirin 81 mg Chewable Tablet] 81 mg PO DAILY 06/22/16 Docusate Sodium [Colace 100 mg Capsule] 200 mg PO QHS 06/22/16 Allergies/Adverse Reactions: No Known Allergies Allergy (Verified 06/22/16 01:57) Review of Systems ROS unobtainable: Due to endotracheal tube Physical Exam Vital Signs: Temp Pulse Resp BP Pulse Ox 100.6 F H 78 19 92/54 L 97 06/23/16 05:15 06/22/16 23:30 06/23/16 06:09 06/23/16 06:09 06/23/16 06:09 Intake & Output 06/22/16 06/23/16 06/24/16 06:59 06:59 06:59 Intake Total 1644 Output Total 1150 Balance 494 Weight 87.2 kg General appearance: PRESENT: no acute distress, well-developed, well-nourished Head exam: PRESENT: atraumatic, normocephalic Eye exam: PRESENT: conjunctiva pale Mouth exam: PRESENT: dry mucosa, other Neck exam: ABSENT: carotid bruit, JVD, lymphadenopathy, thyromegaly Respiratory exam: PRESENT: decreased breath sounds, prolonged expiratory phas, rales, rhonchi, symmetrical, unlabored, wheezes Cardiovascular exam: PRESENT: RRR, +S1, +S2 Pulses: PRESENT: normal radial pulses GI/Abdominal exam: PRESENT: normal bowel sounds, soft. ABSENT: distended, guarding, mass, organolmegaly, rebound, tenderness Rectal exam: PRESENT: deferred Gentrourinary exam: PRESENT: indwelling catheter Musculoskeletal exam: PRESENT: normal inspection Skin exam: PRESENT: dry, intact, warm Results Laboratory Results: 06/23/16 04:46 06/23/16 04:46 06/22/16 06/22/16 06/22/16 21:50 22:20 22:20 WBC 11.0 H RBC 4.14 L Hgb 12.4 L Hct 37.8 L MCV 91 MCH 29.9 MCHC 32.8 RDW 14.3 H Plt Count 104 L Seg Neutrophils % Not Reportable Lymphocytes % Not Reportable Monocytes % Not Reportable Eosinophils % Not Reportable Basophils % Not Reportable Absolute Neutrophils Not Reportable Absolute Lymphocytes Not Reportable Absolute Monocytes Not Reportable Absolute Eosinophils Not Reportable Absolute Basophils Not Reportable Carbonic Acid 1.47 H HCO3/H2CO3 Ratio 15:1 ABG pH 7.30 L ABG pCO2 48.7 H ABG pO2 99.1 ABG HCO3 23.3 ABG O2 Saturation 96.8 ABG Base Excess -3.5 FiO2 100% Sodium 135.5 L Potassium 4.0 Chloride 99 Carbon Dioxide 24 Anion Gap 13 BUN 16 Creatinine 1.01 Est GFR ( Amer) > 60 Est GFR (Non-Af Amer) > 60 Glucose 110 Calcium 8.5 Magnesium 1.9 06/23/16 06/23/16 06/23/16 02:15 04:46 04:46 WBC 9.5 RBC 3.89 L Hgb 11.7 L Hct 35.3 L MCV 91 MCH 30.1 MCHC 33.1 RDW 14.3 H Plt Count 89 L Seg Neutrophils % 82.2 H Lymphocytes % 12.7 L Monocytes % 4.9 Eosinophils % 0.0 Basophils % 0.2 Absolute Neutrophils 7.8 Absolute Lymphocytes 1.2 Absolute Monocytes 0.5 Absolute Eosinophils 0.0 Absolute Basophils 0.0 Carbonic Acid 1.26 HCO3/H2CO3 Ratio 21:1 ABG pH 7.43 ABG pCO2 41.7 ABG pO2 110.5 H ABG HCO3 27.0 H ABG O2 Saturation 98.1 H ABG Base Excess 2.4 FiO2 50% Sodium 134.3 L Potassium 3.7 Chloride 99 Carbon Dioxide 28 Anion Gap 7 BUN 17 Creatinine 0.97 Est GFR ( Amer) > 60 Est GFR (Non-Af Amer) > 60 Glucose 128 H Calcium 8.1 L Magnesium 06/22/16 06/22/16 06/23/16 22:20 22:20 04:46 Creatine Kinase 356 H CK-MB (CK-2) 1.66 Troponin I 0.128 0.150 NT-Pro-B Natriuret Pep 28153 H Impressions: Chest X-Ray 06/22/16 00:00 IMPRESSION: 1. LIFE LINES DESCRIBED IN APPROPRIATE POSITION. 2. INTERVAL DEVELOPMENT OF DIFFUSE PULMONARY INFILTRATES, LEFT GREATER THAN RIGHT. DIFFERENTIAL INCLUDES PNEUMONIA AND/OR ASYMMETRIC PULMONARY EDEMA. Head CT 06/23/16 00:00 IMPRESSION: No acute findings. Lines and tubes. Assessment & Plan - Diagnosis (1) Acute respiratory failure Is this a current diagnosis for this admission?: Yes (2) Cough Is this a current diagnosis for this admission?: No (3) Atrial fibrillation Qualifiers: Atrial fibrillation type: unspecified Qualified Code(s): I48.91 - Unspecified atrial fibrillation Is this a current diagnosis for this admission?: Yes - Time Critical Time spent with patient: 35 or more minutes - 75 min
[2016-06-23] MEDS ORDERED: DIPHENHYDRAMINE HCL 50 MG/ML VIAL ONE (15:11)
[2016-06-23] MEDS ORDERED: DIPHENHYDRAMINE HCL 50 MG/ML VIAL IV PRN (17:34)
[2016-06-23] MEDS: PROPOFOL 100 ML IV PRN ×2 (18:48→22:03)
[2016-06-23] MEDS ORDERED: LEVALBUTEROL HCL NEB 1.25 MG/3 ML AMPUL NEB PRN (20:07)
[2016-06-23] MEDS ORDERED: IPRATROPIUM BROMIDE 0.02% NEB 0.5 MG/2.5 ML AMPUL NEB PRN (20:07)
[2016-06-23 21:15] LABS: CREATINE KINASE MB 1.2 ng/mL (<4.55); TROPONIN I 0.091 ng/mL
[2016-06-23] MEDS ORDERED: METOPROLOL TARTRATE PF/INJ 5 MG/5 ML SDV IV ONE (21:15)
[2016-06-23] MEDS: LEVOFLOXACIN 750 MG/D5W RTU 750 MG/150 ML RTUPB IV SCH (21:26)
[2016-06-24] MEDS: VANCOMYCIN HCL 750 MG in DEXTROSE 5%-WATER 250 ML IV SCH ×2 (00:51→14:40)
[2016-06-24] MEDS: PIPERACILLIN SODIUM/TAZOBACTAM 4.5 GM in NORMAL SALINE 100 ML IV SCH ×2 (00:51→05:23)
[2016-06-24] MEDS: PROPOFOL 100 ML IV PRN ×3 (00:52→07:59)
[2016-06-24] MEDS: DEXTROSE 5%-NORMAL SALINE 1,000 ML IV PRN ×2 (00:52→10:27)
[2016-06-24] MEDS: IPRATROPIUM/ALBUTEROL 0.5-2.5 MG/3 ML AMPUL NEB SCH ×4 (01:21→19:57)
[2016-06-24] MEDS: MIDAZOLAM HCL 100 ML IV PRN ×2 (01:24→14:02)
[2016-06-24] MEDS ORDERED: METOPROLOL TARTRATE PF/INJ 5 MG/5 ML SDV IV ONE ×2 (01:43→02:00)
[2016-06-24 04:36] LABS: ARTERIAL BLOOD BASE EXCESS 0 mmol/L; ARTERIAL BLOOD O2 SATURATION 93.4 % (94-98)
[2016-06-24 04:38] LABS: CREATINE KINASE MB 2.53 ng/mL (<4.55); TROPONIN I 0.062 ng/mL
[2016-06-24] MEDS: ACETAMINOPHEN 325 MG TABLET NG PRN ×2 (05:23→13:57)
--- NOTE | 2016-06-24 07:55 | EKG REPORT ---
SEVERITY:- ABNORMAL ECG - ATRIAL FIBRILLATION BORDERLINE T ABNORMALITIES, INFERIOR LEADS BORDERLINE PROLONGED QT INTERVAL : Confirmed by: Kasia Stevens MD 24-Jun-2016 07:54:19
[2016-06-24 08:18] LABS: ABSOLUTE LYMPHOCYTES (AUTO) 0.8 10^3/uL (0.5-4.7); ABSOLUTE MONOCYTES (AUTO) 0.4 10^3/uL (0.1-1.4); ABSOLUTE NEUT (AUTO) 6.5 10^3/uL (1.7-8.2); BASOPHILS % (AUTO) 0.3 % (0-2); EOSINOPHILS % (AUTO) 0.6 % (0-6); HEMATOCRIT 38.3 % (37.9-51.0); HEMOGLOBIN 12.6 g/dL (13.5-17.0); HGB HCT DIFFERENCE -0.5; LYMPHOCYTES % (AUTO) 10.1 % (13-45); MEAN CORPUSCULAR HEMOGLOBIN 29.7 pg (27.0-33.4); MEAN CORPUSCULAR HGB CONC 32.9 g/dL (32.0-36.0); MEAN CORPUSCULAR VOLUME 90 fl (80-97); MONOCYTES % (AUTO) 4.8 % (3-13); RED BLOOD COUNT 4.24 10^6/uL (4.35-5.55); RED CELL DISTRIBUTION WIDTH 14.5 % (11.5-14.0); SEGMENTED NEUTROPHILS % (AUTO) 84.2 % (42-78); WHITE BLOOD COUNT 7.7 10^3/uL (4.0-10.5)
[2016-06-24 08:52] LABS: CREATINE KINASE MB 3.06 ng/mL (<4.55); TROPONIN I 0.06 ng/mL
[2016-06-24 08:56] LABS: ANION GAP 8 (5-19); BLOOD UREA NITROGEN 15 mg/dL (7-20); CALCIUM 8.3 mg/dL (8.4-10.2); CARBON DIOXIDE 26 mmol/L (22-30); CHLORIDE 104 mmol/L (98-107); CREATINE KINASE 1247 U/L (55-170); CREATININE RESULT 0.78 mg/dL (0.52-1.25); GLUCOSE 99 mg/dL (75-110); POTASSIUM 3.6 mmol/L (3.6-5.0); SODIUM 137.9 mmol/L (137-145)
[2016-06-24] MEDS ORDERED: FUROSEMIDE INJ/PF 20 MG/2 ML SDV IV SCH (10:00)
[2016-06-24] MEDS: FAMOTIDINE INJ/PF 20 MG/2 ML SDV IV SCH ×2 (10:02→21:50)
--- NOTE | 2016-06-24 10:24 | PDOC PROGRESS REPORT ---
Subjective Progress Note for:: 06/24/16 Subjective:: Patient is intubated and sedated Physical Exam Vital Signs: Temp Pulse Resp BP Pulse Ox 98.0 F 84 14 90/49 L 93 06/24/16 10:00 06/24/16 10:00 06/24/16 10:00 06/24/16 10:00 06/24/16 10:00 Intake & Output 06/23/16 06/24/16 06/25/16 06:59 06:59 06:59 Intake Total 1644 3798 Output Total 1150 2095 150 Balance 494 1703 -150 Weight 87.2 kg 85.2 kg General appearance: PRESENT: no acute distress Eye exam: PRESENT: conjunctiva pink. ABSENT: scleral icterus Ear exam: PRESENT: normal external ear exam Mouth exam: PRESENT: moist, tongue midline, other - ET tube present Neck exam: ABSENT: JVD Respiratory exam: PRESENT: rhonchi - Coarse rhonchi bilaterally.. ABSENT: rales , wheezes Cardiovascular exam: PRESENT: RRR. ABSENT: diastolic murmur, rubs, systolic murmur GI/Abdominal exam: PRESENT: normal bowel sounds, soft. ABSENT: distended, guarding, mass, organolmegaly, rebound, tenderness Extremities exam: ABSENT: calf tenderness, clubbing, pedal edema Neurological exam: PRESENT: other - Intubated and sedated Psychiatric exam: PRESENT: other - Unable to assess Skin exam: PRESENT: dry, intact, warm. ABSENT: cyanosis, rash Results Laboratory Results: 06/24/16 08:02 06/24/16 08:02 06/23/16 06/24/16 06/24/16 04:46 04:20 08:02 WBC 7.7 RBC 4.24 L Hgb 12.6 L Hct 38.3 MCV 90 MCH 29.7 MCHC 32.9 RDW 14.5 H Plt Count 80 L Seg Neutrophils % 84.2 H Lymphocytes % 10.1 L Monocytes % 4.8 Eosinophils % 0.6 Basophils % 0.3 Absolute Neutrophils 6.5 Absolute Lymphocytes 0.8 Absolute Monocytes 0.4 Absolute Eosinophils 0.0 Absolute Basophils 0.0 Carbonic Acid 1.11 HCO3/H2CO3 Ratio 21:1 ABG pH 7.43 ABG pCO2 37.0 ABG pO2 65.0 L ABG HCO3 24.0 ABG O2 Saturation 93.4 L ABG Base Excess 0 FiO2 40% Sodium Potassium Chloride Carbon Dioxide Anion Gap BUN Creatinine Est GFR ( Amer) Est GFR (Non-Af Amer) Glucose Calcium Magnesium Triglycerides 48 06/24/16 06/24/16 08:02 08:02 WBC RBC Hgb Hct MCV MCH MCHC RDW Plt Count Seg Neutrophils % Lymphocytes % Monocytes % Eosinophils % Basophils % Absolute Neutrophils Absolute Lymphocytes Absolute Monocytes Absolute Eosinophils Absolute Basophils Carbonic Acid HCO3/H2CO3 Ratio ABG pH ABG pCO2 ABG pO2 ABG HCO3 ABG O2 Saturation ABG Base Excess FiO2 Sodium 137.9 Potassium 3.6 Chloride 104 Carbon Dioxide 26 Anion Gap 8 BUN 15 Creatinine 0.78 Est GFR ( Amer) > 60 Est GFR (Non-Af Amer) > 60 Glucose 99 Calcium 8.3 L Magnesium 2.0 Triglycerides 06/22/16 06/22/16 06/23/16 22:20 22:20 04:46 Creatine Kinase 356 H CK-MB (CK-2) 1.66 Troponin I 0.128 0.150 NT-Pro-B Natriuret Pep 31534 H 06/23/16 06/23/16 06/24/16 20:35 20:35 03:52 Creatine Kinase 779 H 1085 H CK-MB (CK-2) 1.20 Troponin I 0.091 NT-Pro-B Natriuret Pep 06/24/16 06/24/16 06/24/16 03:52 08:02 08:02 Creatine Kinase 1247 H Cancelled CK-MB (CK-2) 2.53 Troponin I 0.062 NT-Pro-B Natriuret Pep 06/24/16 08:02 Creatine Kinase CK-MB (CK-2) 3.06 Troponin I 0.060 NT-Pro-B Natriuret Pep Impressions: Head CT 06/23/16 00:00 IMPRESSION: No acute findings. Lines and tubes. Chest X-Ray 06/24/16 00:00 IMPRESSION: Interval improvement. Moderate pulmonary edema pattern. Differential diagnosis includes pneumonia. Lines and tubes. Assessment & Plan - Diagnosis (1) Acute respiratory failure Is this a current diagnosis for this admission?: YesPlan: Secondary to pneumonia. The patient remains intubated and sedated. (2) Elevated troponin Is this a current diagnosis for this admission?: YesPlan: Most likely secondary to the stress of the underlying illness. (3) Pneumonia involving left lung Qualifiers: Pneumonia type: due to unspecified organism Lung location: unspecified part of lung Qualified Code(s): J18.9 - Pneumonia, unspecified organism Is this a current diagnosis for this admission?: YesPlan: Patient is on vancomycin, Levaquin and Zosyn. We'll continue to monitor his cultures. (4) Atrial fibrillation Qualifiers: Atrial fibrillation type: unspecified Qualified Code(s): I48.91 - Unspecified atrial fibrillation Is this a current diagnosis for this admission?: YesPlan: Patient is currently rate control. Continue the amiodarone. (5) Anticoagulated Is this a current diagnosis for this admission?: YesPlan: Patient is on Eliquis for anticoagulation (6) CAD (coronary artery disease) Qualifiers: Coronary Disease-Associated Artery/Lesion type: [place] artery [place] vs. transplanted heart: [place] heart Associated angina: without angina Qualified Code(s): I25.10 - Atherosclerotic heart disease of [place] coronary artery without angina pectoris Is this a current diagnosis for this admission?: YesPlan: He has a positive troponins but this most likely secondary to the underlying pneumonia. - Time Time Spent with patient: 25-34 minutes - Inpatient Certification Medical Necessity: Need for IV Antibiotics
[2016-06-24] MEDS: POTASSI CL 20 MEQ/50 ML RIDER 50 ML IV SCH ×2 (10:31→11:46)
[2016-06-24 11:20] LABS: CREATINE KINASE MB 2.79 ng/mL (<4.55); TROPONIN I 0.042 ng/mL
[2016-06-24] MEDS: ASPIRIN 81 MG TABLET, CHEWABLE NG SCH (11:33)
[2016-06-24] MEDS: AMIODARONE HCL 200 MG TABLET NG SCH (11:47)
[2016-06-24 13:01] LABS: CREATININE RESULT 0.76 mg/dL (0.52-1.25)
[2016-06-24] MEDS: AMLODIPINE BESYLATE 5 MG TABLET NG SCH (13:05)
[2016-06-24] MEDS: PIPERACILLIN SODIUM/TAZOBACTAM 3.375 GM in NORMAL SALINE 100 ML IV SCH ×2 (14:04→18:29)
--- NOTE | 2016-06-24 14:28 | PDOC PROGRESS REPORT ---
Subjective Progress Note for:: 06/24/16 Subjective:: Intubated and sedated Physical Exam Vital Signs: Temp Pulse Resp BP Pulse Ox 96.6 F L 71 14 100/57 L 96 06/24/16 08:00 06/24/16 08:00 06/24/16 08:00 06/24/16 08:00 06/24/16 08:00 Intake & Output 06/23/16 06/24/16 06/25/16 06:59 06:59 06:59 Intake Total 1644 3798 Output Total 1150 2095 20 Balance 494 1703 -20 Weight 87.2 kg 85.2 kg General appearance: PRESENT: no acute distress, disheveled, well-developed, well -nourished Head exam: PRESENT: atraumatic, normocephalic Eye exam: PRESENT: conjunctiva pale Mouth exam: PRESENT: neck supple, tongue midline, other - ET tube in place Neck exam: ABSENT: carotid bruit, JVD, lymphadenopathy, thyromegaly Respiratory exam: PRESENT: crackles, decreased breath sounds, prolonged expiratory phas, rhonchi, symmetrical, unlabored Cardiovascular exam: PRESENT: RRR, +S1, +S2 Pulses: PRESENT: normal radial pulses GI/Abdominal exam: PRESENT: hypoactive bowel sounds, soft. ABSENT: distended, guarding, mass, organolmegaly, rebound, tenderness Rectal exam: PRESENT: deferred Gentrourinary exam: PRESENT: indwelling catheter Musculoskeletal exam: PRESENT: normal inspection Skin exam: PRESENT: dry, warm Results Laboratory Results: 06/24/16 08:02 06/24/16 08:02 06/23/16 06/24/16 06/24/16 04:46 04:20 08:02 WBC 7.7 RBC 4.24 L Hgb 12.6 L Hct 38.3 MCV 90 MCH 29.7 MCHC 32.9 RDW 14.5 H Plt Count 80 L Seg Neutrophils % 84.2 H Lymphocytes % 10.1 L Monocytes % 4.8 Eosinophils % 0.6 Basophils % 0.3 Absolute Neutrophils 6.5 Absolute Lymphocytes 0.8 Absolute Monocytes 0.4 Absolute Eosinophils 0.0 Absolute Basophils 0.0 Carbonic Acid 1.11 HCO3/H2CO3 Ratio 21:1 ABG pH 7.43 ABG pCO2 37.0 ABG pO2 65.0 L ABG HCO3 24.0 ABG O2 Saturation 93.4 L ABG Base Excess 0 FiO2 40% Sodium Potassium Chloride Carbon Dioxide Anion Gap BUN Creatinine Est GFR ( Amer) Est GFR (Non-Af Amer) Glucose Calcium Triglycerides 48 06/24/16 08:02 WBC RBC Hgb Hct MCV MCH MCHC RDW Plt Count Seg Neutrophils % Lymphocytes % Monocytes % Eosinophils % Basophils % Absolute Neutrophils Absolute Lymphocytes Absolute Monocytes Absolute Eosinophils Absolute Basophils Carbonic Acid HCO3/H2CO3 Ratio ABG pH ABG pCO2 ABG pO2 ABG HCO3 ABG O2 Saturation ABG Base Excess FiO2 Sodium 137.9 Potassium 3.6 Chloride 104 Carbon Dioxide 26 Anion Gap 8 BUN 15 Creatinine 0.78 Est GFR ( Amer) > 60 Est GFR (Non-Af Amer) > 60 Glucose 99 Calcium 8.3 L Triglycerides 06/22/16 06/22/16 06/23/16 22:20 22:20 04:46 Creatine Kinase 356 H CK-MB (CK-2) 1.66 Troponin I 0.128 0.150 NT-Pro-B Natriuret Pep 00571 H 06/23/16 06/23/16 06/24/16 20:35 20:35 03:52 Creatine Kinase 779 H 1085 H CK-MB (CK-2) 1.20 Troponin I 0.091 NT-Pro-B Natriuret Pep 06/24/16 06/24/16 06/24/16 03:52 08:02 08:02 Creatine Kinase 1247 H Cancelled CK-MB (CK-2) 2.53 Troponin I 0.062 NT-Pro-B Natriuret Pep 06/24/16 08:02 Creatine Kinase CK-MB (CK-2) 3.06 Troponin I 0.060 NT-Pro-B Natriuret Pep Impressions: Head CT 06/23/16 00:00 IMPRESSION: No acute findings. Lines and tubes. Chest X-Ray 06/24/16 00:00 IMPRESSION: Interval improvement. Moderate pulmonary edema pattern. Differential diagnosis includes pneumonia. Lines and tubes. Assessment & Plan - Diagnosis (1) Acute respiratory failure Is this a current diagnosis for this admission?: YesPlan: Continue ventilatory support radiographically pneumonia as well as effusions no positive cultures at this time (2) Cough Is this a current diagnosis for this admission?: No (3) Atrial fibrillation Qualifiers: Atrial fibrillation type: unspecified Qualified Code(s): I48.91 - Unspecified atrial fibrillation Is this a current diagnosis for this admission?: YesPlan: Fair control at this time (4) Thrombocytopenia Is this a current diagnosis for this admission?: YesPlan: Labs- All tests 24 hr 06/21/16 06/22/16 06/23/16 22:26 22:20 04:46 Plt Count 145 L 104 L 89 L 06/24/16 08:02 Plt Count 80 L Eliquis plus aspirin will discuss with primary care provider - Time Critical Time spent with patient: 35 or more minutes - 60 million - Plan Summary Plan Summary: Discussed patient's history with family at length he is not a smoker but has been exposed to passive smoke as a child and adolescent does have a dog he has been getting progressively ill over the last month and this began with a diagnosis of atrial fibrillation. He was cardioverted and put on several different medications however the last several days he has complained of chills nausea without vomiting and abdominal pain and constipation no known history of abdominal problems in the past
[2016-06-24 16:51] LABS: CREATINE KINASE MB 2.56 ng/mL (<4.55); TROPONIN I 0.043 ng/mL
[2016-06-24] MEDS: FUROSEMIDE INJ/PF 20 MG/2 ML SDV IV SCH (18:25)
--- NOTE | 2016-06-24 19:00 | Progress Note ---
Provider Note Provider Note: Patient's family brought in his living will that he does not want aggressive measures done. We will continue with intubation but would not do cardioversion if he would have a cardiac arrest.
[2016-06-24 20:04] LABS: ARTERIAL BLOOD BASE EXCESS -2.8 mmol/L; ARTERIAL BLOOD O2 SATURATION 85.2 % (94-98)
[2016-06-24] MEDS: METOPROLOL TARTRATE 50 MG TABLET PO SCH ×2 (20:05→20:14)
[2016-06-24] MEDS: LEVOFLOXACIN 750 MG/D5W RTU 750 MG/150 ML RTUPB IV SCH (21:50)
[2016-06-24 23:49] LABS: CREATINE KINASE MB 3.06 ng/mL (<4.55); TROPONIN I 0.038 ng/mL
[2016-06-25] MEDS: PIPERACILLIN SODIUM/TAZOBACTAM 3.375 GM in NORMAL SALINE 100 ML IV SCH ×5 (00:57→23:17)
[2016-06-25] MEDS: VANCOMYCIN HCL 1,250 MG in DEXTROSE 5%-WATER 250 ML IV SCH ×2 (00:58→13:15)
[2016-06-25] MEDS: IPRATROPIUM/ALBUTEROL 0.5-2.5 MG/3 ML AMPUL NEB SCH ×4 (02:38→20:05)
[2016-06-25 05:20] LABS: ALANINE AMINOTRANSFERASE 42 U/L (21-72); ALBUMIN 2.6 g/dL (3.5-5.0); ALKALINE PHOSPHATASE 52 U/L (38-126); ANION GAP 9 (5-19); ASPARTATE AMINO TRANSFERASE 79 U/L (17-59); BILIRUBIN,TOTAL 1.1 mg/dL (0.2-1.3); BLOOD UREA NITROGEN 16 mg/dL (7-20); CALCIUM 8.1 mg/dL (8.4-10.2); CARBON DIOXIDE 22 mmol/L (22-30); CHLORIDE 104 mmol/L (98-107); CREATININE RESULT 0.86 mg/dL (0.52-1.25); GLUCOSE 113 mg/dL (75-110); MAGNESIUM 1.8 mg/dL (1.6-2.3); POTASSIUM 4.2 mmol/L (3.6-5.0); SODIUM 134.6 mmol/L (137-145); TOTAL PROTEIN 5.1 g/dL (6.3-8.2)
[2016-06-25 05:23] LABS: ABSOLUTE LYMPHOCYTES (AUTO) 0.9 10^3/uL (0.5-4.7); ABSOLUTE MONOCYTES (AUTO) 0.3 10^3/uL (0.1-1.4); ABSOLUTE NEUT (AUTO) 4.9 10^3/uL (1.7-8.2); BASOPHILS % (AUTO) 0.2 % (0-2); EOSINOPHILS % (AUTO) 0.1 % (0-6); HEMATOCRIT 38.1 % (37.9-51.0); HEMOGLOBIN 12.3 g/dL (13.5-17.0); HGB HCT DIFFERENCE -1.2; LYMPHOCYTES % (AUTO) 14.2 % (13-45); MEAN CORPUSCULAR HEMOGLOBIN 29.6 pg (27.0-33.4); MEAN CORPUSCULAR HGB CONC 32.3 g/dL (32.0-36.0); MEAN CORPUSCULAR VOLUME 92 fl (80-97); MONOCYTES % (AUTO) 4.6 % (3-13); RED BLOOD COUNT 4.15 10^6/uL (4.35-5.55); RED CELL DISTRIBUTION WIDTH 14.5 % (11.5-14.0); SEGMENTED NEUTROPHILS % (AUTO) 80.9 % (42-78); WHITE BLOOD COUNT 6.1 10^3/uL (4.0-10.5)
[2016-06-25] MEDS: FUROSEMIDE INJ/PF 20 MG/2 ML SDV IV SCH (05:52)
[2016-06-25] MEDS: METOPROLOL TARTRATE 50 MG TABLET PO SCH ×2 (05:53→18:25)
[2016-06-25] MEDS: DEXTROSE 5%-NORMAL SALINE 1,000 ML IV PRN ×3 (05:57→21:26)
[2016-06-25] MEDS: PROPOFOL 100 ML IV PRN (05:58)
--- NOTE | 2016-06-25 09:28 | XCELERA REPORT ---
[address] [address] Transthoracic Echocardiogram Report Name: TONY MANE Age: 85 yrs Gender: Male : 1930 Patient Status: Inpatient Patient Location: [id number] Study Date: 06/24/2016 02:29 PM Height: 66 in Weight: 187 lb BSA: 1.9 m2 Procedure: A complete two-dimensional transthoracic echocardiogram was performed (2D, M-mode, spectral and color flow Doppler). The study was technically difficult with many images being suboptimal in quality. Reason For Study: hypotension Ordering Physician: DARYL DELCID Performed By: Harriett Mckenzie Interpretation Summary The study was technically difficult with many images being suboptimal in quality. The Ejection Fraction estimate is 45-50% Doppler measurements suggest pseudonormalized left ventricular relaxation, which is associated with grade II/IV or mild to moderate diastolic dysfunction There is mild concentric left ventricular hypertrophy. The left ventricle is grossly normal size. Regional wall motion abnormalities cannot be excluded due to limited visualization. The right ventricle is grossly normal size. The right ventricular systolic function is normal. The right atrium is mildly dilated. The left atrium is moderately dilated. There is mild mitral stenosis There is a trace amount of mitral regurgitation There is mild aortic stenosis There is a trace amount of aortic regurgitation There is a trace or physiologic amount of tricuspid regurgitation There is mild pulmonary hypertension by echo Right ventricular systolic pressure is estimated to be elevated at 30- 40mmHg. The aortic root is not well visualized. The inferior vena cava was not well visualized There is no pericardial effusion. MMode/2D Measurements \T\ Calculations RVDd: 2.8 cm LVIDd: 4.4 cm FS: 19.1 % Ao root diam: 3.4 cm IVSd: 1.1 cm LVIDs: 3.5 cm EDV(Teich): 86.0 ml LVPWd: 1.0 cm ESV(Teich): 51.9 ml Ao root area: 9.3 cm2 EF(Teich): 39.6 % LA dimension: 4.8 cm LVOT diam: 2.2 cm LVOT area: 3.7 cm2 Doppler Measurements \T\ Calculations MV E max chuy: MV P1/2t max chuy: Ao V2 max: LV V1 max P.7 cm/sec 160.7 cm/sec 190.2 cm/sec 4.2 mmHg MV A max chuy: MV P1/2t: 79.5 msec Ao max PG: LV V1 max: 93.2 cm/sec MVA(P1/2t): 2.8 cm2 14.5 mmHg 102.0 cm/sec MV E/A: 1.7 MV dec slope: JO ANN(V,D): 2.0 cm2 592.2 cm/sec2 PA V2 max: TR max chuy: 73.5 cm/sec 270.3 cm/sec PA max PG: TR max P.2 mmHg 2.2 mmHg Left Ventricle The left ventricle is grossly normal size. There is mild concentric left ventricular hypertrophy. The Ejection Fraction estimate is 45-50%. Doppler measurements suggest pseudonormalized left ventricular relaxation, which is associated with grade II/IV or mild to moderate diastolic dysfunction. Regional wall motion abnormalities cannot be excluded due to limited visualization. Right Ventricle The right ventricle is grossly normal size. There is normal right ventricular wall thickness. The right ventricular systolic function is normal. Atria The right atrium is mildly dilated. The left atrium is moderately dilated. Interarterial septum not well visualized and not well dopplered. Cannot comment on ASD/PFO presence. Mitral Valve There is moderate mitral annular calcification. There is mild mitral stenosis. There is a trace amount of mitral regurgitation. Aortic Valve The aortic valve is moderately calcified. There is mild aortic stenosis. There is a trace amount of aortic regurgitation. Tricuspid Valve The tricuspid valve is not well visualized secondary to technical limitations. There is no tricuspid stenosis. There is a trace or physiologic amount of tricuspid regurgitation. There is mild pulmonary hypertension by echo. Right ventricular systolic pressure is estimated to be elevated at 30-40mmHg. Pulmonic Valve The pulmonic valve is not well visualized. Great Vessels The aortic root is not well visualized. The inferior vena cava was not well visualized. Effusions There is no pericardial effusion. : DARYL DELCID > Janina Wallace
[2016-06-25] MEDS: AMIODARONE HCL 200 MG TABLET NG SCH (09:43)
[2016-06-25] MEDS: ASPIRIN 81 MG TABLET, CHEWABLE NG SCH (09:43)
[2016-06-25] MEDS: FAMOTIDINE INJ/PF 20 MG/2 ML SDV IV SCH ×2 (09:44→21:24)
[2016-06-25] MEDS: ACETAMINOPHEN 325 MG TABLET NG PRN ×2 (09:48→18:25)
[2016-06-25] MEDS: AMLODIPINE BESYLATE 5 MG TABLET NG SCH (09:50)
--- NOTE | 2016-06-25 10:49 | PDOC PROGRESS REPORT ---
Subjective Progress Note for:: 06/25/16 Subjective:: Patient is intubated and sedated Physical Exam Vital Signs: Temp Pulse Resp BP Pulse Ox 101.1 F H 97 15 95/60 L 100 06/25/16 10:00 06/25/16 10:00 06/25/16 10:00 06/25/16 10:00 06/25/16 10:00 Intake & Output 06/24/16 06/25/16 06/26/16 06:59 06:59 06:59 Intake Total 3798 3640 Output Total 0795 855 225 Balance 1703 2785 -225 Weight 85.2 kg 85.4 kg General appearance: PRESENT: mild distress Eye exam: PRESENT: conjunctiva pink. ABSENT: scleral icterus Ear exam: PRESENT: normal external ear exam Mouth exam: PRESENT: moist, tongue midline, other - ET tube in place Neck exam: ABSENT: JVD Respiratory exam: PRESENT: rales - Bibasilar inspiratory rales with some scattered expiratory wheezes, wheezes. ABSENT: rhonchi Cardiovascular exam: PRESENT: tachycardia. ABSENT: diastolic murmur, rubs, systolic murmur GI/Abdominal exam: PRESENT: normal bowel sounds, soft. ABSENT: distended, guarding, mass, organolmegaly, rebound, tenderness Extremities exam: ABSENT: calf tenderness, clubbing, pedal edema Neurological exam: PRESENT: other - Patient is intubated and sedated. Psychiatric exam: PRESENT: other - Unable to assess Skin exam: PRESENT: dry, intact, warm. ABSENT: cyanosis, rash Results Laboratory Results: 06/25/16 04:39 06/25/16 04:39 06/24/16 06/24/16 06/25/16 12:30 19:50 04:39 WBC 6.1 RBC 4.15 L Hgb 12.3 L Hct 38.1 MCV 92 MCH 29.6 MCHC 32.3 RDW 14.5 H Plt Count 85 L Seg Neutrophils % 80.9 H Lymphocytes % 14.2 Monocytes % 4.6 Eosinophils % 0.1 Basophils % 0.2 Absolute Neutrophils 4.9 Absolute Lymphocytes 0.9 Absolute Monocytes 0.3 Absolute Eosinophils 0.0 Absolute Basophils 0.0 Carbonic Acid 1.13 HCO3/H2CO3 Ratio 19:1 ABG pH 7.38 ABG pCO2 37.7 ABG pO2 50.2 L ABG HCO3 21.9 ABG O2 Saturation 85.2 L ABG Base Excess -2.8 FiO2 60% Sodium Potassium Chloride Carbon Dioxide Anion Gap BUN Creatinine 0.76 Est GFR ( Amer) > 60 Est GFR (Non-Af Amer) > 60 Glucose Calcium Phosphorus Magnesium Total Bilirubin AST ALT Alkaline Phosphatase Total Protein Albumin 06/25/16 04:39 WBC RBC Hgb Hct MCV MCH MCHC RDW Plt Count Seg Neutrophils % Lymphocytes % Monocytes % Eosinophils % Basophils % Absolute Neutrophils Absolute Lymphocytes Absolute Monocytes Absolute Eosinophils Absolute Basophils Carbonic Acid HCO3/H2CO3 Ratio ABG pH ABG pCO2 ABG pO2 ABG HCO3 ABG O2 Saturation ABG Base Excess FiO2 Sodium 134.6 L Potassium 4.2 Chloride 104 Carbon Dioxide 22 Anion Gap 9 BUN 16 Creatinine 0.86 Est GFR ( Amer) > 60 Est GFR (Non-Af Amer) > 60 Glucose 113 H Calcium 8.1 L Phosphorus 3.0 Magnesium 1.8 Total Bilirubin 1.1 AST 79 H ALT 42 Alkaline Phosphatase 52 Total Protein 5.1 L Albumin 2.6 L 06/22/16 21:45 Tracheal Aspirate Gram Stain - Final 06/22/16 21:45 Tracheal Aspirate Sputum Culture - Final NORMAL MARY 06/22/16 06/22/16 06/23/16 22:20 22:20 04:46 Creatine Kinase 356 H CK-MB (CK-2) 1.66 Troponin I 0.128 0.150 NT-Pro-B Natriuret Pep 48914 H 06/23/16 06/23/16 06/24/16 20:35 20:35 03:52 Creatine Kinase 779 H 1085 H CK-MB (CK-2) 1.20 Troponin I 0.091 NT-Pro-B Natriuret Pep 06/24/16 06/24/16 06/24/16 03:52 08:02 08:02 Creatine Kinase 1247 H Cancelled CK-MB (CK-2) 2.53 Troponin I 0.062 NT-Pro-B Natriuret Pep 06/24/16 06/24/16 06/24/16 08:02 10:38 10:38 Creatine Kinase 1137 H CK-MB (CK-2) 3.06 2.79 Troponin I 0.060 0.042 NT-Pro-B Natriuret Pep 06/24/16 06/24/16 06/24/16 16:18 16:18 22:30 Creatine Kinase 1160 H Cancelled CK-MB (CK-2) 2.56 Troponin I 0.043 NT-Pro-B Natriuret Pep 06/24/16 06/24/16 06/24/16 22:30 23:15 23:15 Creatine Kinase 1149 H CK-MB (CK-2) Cancelled 3.06 Troponin I Cancelled 0.038 NT-Pro-B Natriuret Pep Impressions: Head CT 06/23/16 00:00 IMPRESSION: No acute findings. Lines and tubes. Chest X-Ray 06/25/16 06:00 IMPRESSION: Worsened moderate -severe bilateral mixed interstitial and airspace opacities. Differential diagnosis includes advanced pulmonary edema and multifocal pneumonia. Assessment & Plan - Diagnosis (1) Acute respiratory failure Is this a current diagnosis for this admission?: YesPlan: Secondary to pneumonia. The patient remains intubated and sedated. (2) Elevated troponin Is this a current diagnosis for this admission?: YesPlan: Most likely secondary to the stress of the underlying illness. (3) Pneumonia involving left lung Qualifiers: Pneumonia type: due to unspecified organism Lung location: unspecified part of lung Qualified Code(s): J18.9 - Pneumonia, unspecified organism Is this a current diagnosis for this admission?: YesPlan: Patient is on vancomycin, Levaquin and Zosyn. We'll continue to monitor his cultures which are negative so far (4) Atrial fibrillation Qualifiers: Atrial fibrillation type: unspecified Qualified Code(s): I48.91 - Unspecified atrial fibrillation Is this a current diagnosis for this admission?: YesPlan: Patient is currently rate control. Continue the amiodarone. (5) Anticoagulated Is this a current diagnosis for this admission?: YesPlan: Patient is on Eliquis for anticoagulation (6) CAD (coronary artery disease) Qualifiers: Coronary Disease-Associated Artery/Lesion type: [place] artery [place] vs. transplanted heart: [place] heart Associated angina: without angina Qualified Code(s): I25.10 - Atherosclerotic heart disease of [place] coronary artery without angina pectoris Is this a current diagnosis for this admission?: YesPlan: He has a positive troponins but this most likely secondary to the underlying pneumonia. - Time Time Spent with patient: 25-34 minutes - Inpatient Certification Medical Necessity: Need for IV Antibiotics - Plan Summary Plan Summary: Discussed CODE STATUS with family. They do not want any escalation. They report he is a DO NOT RESUSCITATE however they agree with continue with intubation for now. If he does not improve we will address the issue of whether or not to extubate make him comfort care.
--- NOTE | 2016-06-25 11:40 | PDOC PROGRESS REPORT ---
Subjective Progress Note for:: 06/25/16 Subjective:: Intubated and sedated Physical Exam Vital Signs: Temp Pulse Resp BP Pulse Ox 101.1 F H 97 15 95/60 L 100 06/25/16 10:00 06/25/16 10:00 06/25/16 10:00 06/25/16 10:00 06/25/16 10:00 Intake & Output 06/24/16 06/25/16 06/26/16 06:59 06:59 06:59 Intake Total 3798 3640 Output Total 0255 855 225 Balance 1703 2785 -225 Weight 85.2 kg 85.4 kg General appearance: PRESENT: no acute distress, disheveled, obese Head exam: PRESENT: atraumatic, normocephalic Eye exam: PRESENT: conjunctiva pale Mouth exam: PRESENT: moist, neck supple, other - Endotracheal tube in Neck exam: ABSENT: carotid bruit, JVD, lymphadenopathy, thyromegaly Respiratory exam: PRESENT: decreased breath sounds, prolonged expiratory phas, rhonchi, symmetrical, unlabored Cardiovascular exam: PRESENT: irregular rhythm Pulses: PRESENT: normal radial pulses GI/Abdominal exam: PRESENT: normal bowel sounds, soft. ABSENT: distended, guarding, mass, organolmegaly, rebound, tenderness Rectal exam: PRESENT: deferred Gentrourinary exam: PRESENT: indwelling catheter Musculoskeletal exam: PRESENT: normal inspection Skin exam: PRESENT: warm Results Laboratory Results: 06/25/16 04:39 06/25/16 04:39 06/24/16 06/24/16 06/25/16 12:30 19:50 04:39 WBC 6.1 RBC 4.15 L Hgb 12.3 L Hct 38.1 MCV 92 MCH 29.6 MCHC 32.3 RDW 14.5 H Plt Count 85 L Seg Neutrophils % 80.9 H Lymphocytes % 14.2 Monocytes % 4.6 Eosinophils % 0.1 Basophils % 0.2 Absolute Neutrophils 4.9 Absolute Lymphocytes 0.9 Absolute Monocytes 0.3 Absolute Eosinophils 0.0 Absolute Basophils 0.0 Carbonic Acid 1.13 HCO3/H2CO3 Ratio 19:1 ABG pH 7.38 ABG pCO2 37.7 ABG pO2 50.2 L ABG HCO3 21.9 ABG O2 Saturation 85.2 L ABG Base Excess -2.8 FiO2 60% Sodium Potassium Chloride Carbon Dioxide Anion Gap BUN Creatinine 0.76 Est GFR ( Amer) > 60 Est GFR (Non-Af Amer) > 60 Glucose Calcium Phosphorus Magnesium Total Bilirubin AST ALT Alkaline Phosphatase Total Protein Albumin 06/25/16 04:39 WBC RBC Hgb Hct MCV MCH MCHC RDW Plt Count Seg Neutrophils % Lymphocytes % Monocytes % Eosinophils % Basophils % Absolute Neutrophils Absolute Lymphocytes Absolute Monocytes Absolute Eosinophils Absolute Basophils Carbonic Acid HCO3/H2CO3 Ratio ABG pH ABG pCO2 ABG pO2 ABG HCO3 ABG O2 Saturation ABG Base Excess FiO2 Sodium 134.6 L Potassium 4.2 Chloride 104 Carbon Dioxide 22 Anion Gap 9 BUN 16 Creatinine 0.86 Est GFR ( Amer) > 60 Est GFR (Non-Af Amer) > 60 Glucose 113 H Calcium 8.1 L Phosphorus 3.0 Magnesium 1.8 Total Bilirubin 1.1 AST 79 H ALT 42 Alkaline Phosphatase 52 Total Protein 5.1 L Albumin 2.6 L 06/22/16 21:45 Tracheal Aspirate Gram Stain - Final 06/22/16 21:45 Tracheal Aspirate Sputum Culture - Final NORMAL MARY 06/22/16 06/22/16 06/23/16 22:20 22:20 04:46 Creatine Kinase 356 H CK-MB (CK-2) 1.66 Troponin I 0.128 0.150 NT-Pro-B Natriuret Pep 06312 H 06/23/16 06/23/16 06/24/16 20:35 20:35 03:52 Creatine Kinase 779 H 1085 H CK-MB (CK-2) 1.20 Troponin I 0.091 NT-Pro-B Natriuret Pep 06/24/16 06/24/16 06/24/16 03:52 08:02 08:02 Creatine Kinase 1247 H Cancelled CK-MB (CK-2) 2.53 Troponin I 0.062 NT-Pro-B Natriuret Pep 06/24/16 06/24/16 06/24/16 08:02 10:38 10:38 Creatine Kinase 1137 H CK-MB (CK-2) 3.06 2.79 Troponin I 0.060 0.042 NT-Pro-B Natriuret Pep 06/24/16 06/24/16 06/24/16 16:18 16:18 22:30 Creatine Kinase 1160 H Cancelled CK-MB (CK-2) 2.56 Troponin I 0.043 NT-Pro-B Natriuret Pep 06/24/16 06/24/16 06/24/16 22:30 23:15 23:15 Creatine Kinase 1149 H CK-MB (CK-2) Cancelled 3.06 Troponin I Cancelled 0.038 NT-Pro-B Natriuret Pep Impressions: Head CT 06/23/16 00:00 IMPRESSION: No acute findings. Lines and tubes. Chest X-Ray 06/25/16 06:00 IMPRESSION: Worsened moderate -severe bilateral mixed interstitial and airspace opacities. Differential diagnosis includes advanced pulmonary edema and multifocal pneumonia. Assessment & Plan - Diagnosis (1) Acute respiratory failure Is this a current diagnosis for this admission?: YesPlan: Unchanged mode of ventilation to BiPAP SaO2 improved and FiO2's were decreased successfully long-term prognosis is poor (2) Cough Is this a current diagnosis for this admission?: No (3) Atrial fibrillation Qualifiers: Atrial fibrillation type: unspecified Qualified Code(s): I48.91 - Unspecified atrial fibrillation Is this a current diagnosis for this admission?: YesPlan: Fair control at this time (4) Thrombocytopenia Is this a current diagnosis for this admission?: YesPlan: Platelet count unchanged - Time Critical Time spent with patient: 35 or more minutes - 45 minutes
[2016-06-25 11:43] LABS: ARTERIAL BLOOD BASE EXCESS -2.9 mmol/L; ARTERIAL BLOOD O2 SATURATION 98.8 % (94-98)
[2016-06-25] MEDS ORDERED: NORMAL SALINE 1000 ML 1,000 ML IV ONE (12:00)
[2016-06-25 17:14] LABS: ARTERIAL BLOOD BASE EXCESS -3.1 mmol/L; ARTERIAL BLOOD O2 SATURATION 97.4 % (94-98)
[2016-06-25 19:11] LABS: ARTERIAL BLOOD BASE EXCESS -2.8 mmol/L; ARTERIAL BLOOD O2 SATURATION 96.9 % (94-98)
[2016-06-25] MEDS: LEVOFLOXACIN 750 MG/D5W RTU 750 MG/150 ML RTUPB IV SCH (21:32)
[2016-06-25] MEDS: MIDAZOLAM HCL 100 ML IV PRN (23:17)
[2016-06-26] MEDS: VANCOMYCIN HCL 1,250 MG in DEXTROSE 5%-WATER 250 ML IV SCH ×2 (01:13→13:32)
[2016-06-26] MEDS: IPRATROPIUM/ALBUTEROL 0.5-2.5 MG/3 ML AMPUL NEB SCH ×4 (01:37→20:33)
[2016-06-26 04:03] LABS: ABSOLUTE LYMPHOCYTES (AUTO) 0.4 10^3/uL (0.5-4.7); ABSOLUTE MONOCYTES (AUTO) 0.1 10^3/uL (0.1-1.4); ABSOLUTE NEUT (AUTO) 5.8 10^3/uL (1.7-8.2); BASOPHILS % (AUTO) 0.1 % (0-2); EOSINOPHILS % (AUTO) 0.2 % (0-6); HEMATOCRIT 37.4 % (37.9-51.0); HEMOGLOBIN 12.5 g/dL (13.5-17.0); HGB HCT DIFFERENCE 0.1; LYMPHOCYTES % (AUTO) 5.6 % (13-45); MEAN CORPUSCULAR HEMOGLOBIN 29.7 pg (27.0-33.4); MEAN CORPUSCULAR HGB CONC 33.4 g/dL (32.0-36.0); MEAN CORPUSCULAR VOLUME 89 fl (80-97); MONOCYTES % (AUTO) 1.8 % (3-13); RED CELL DISTRIBUTION WIDTH 14.9 % (11.5-14.0); SEGMENTED NEUTROPHILS % (AUTO) 92.3 % (42-78); WHITE BLOOD COUNT 6.3 10^3/uL (4.0-10.5)
[2016-06-26 04:13] LABS: ANION GAP 10 (5-19); BLOOD UREA NITROGEN 22 mg/dL (7-20); CALCIUM 8.3 mg/dL (8.4-10.2); CARBON DIOXIDE 20 mmol/L (22-30); CHLORIDE 106 mmol/L (98-107); CREATININE RESULT 1.01 mg/dL (0.52-1.25); GLUCOSE 83 mg/dL (75-110); MAGNESIUM 1.8 mg/dL (1.6-2.3); PHOSPHORUS 3.2 mg/dL (2.5-4.5); POTASSIUM 4.5 mmol/L (3.6-5.0); SODIUM 136.1 mmol/L (137-145); TRIGLYCERIDES 96 mg/dL (<150)
[2016-06-26 05:22] LABS: ARTERIAL BLOOD BASE EXCESS -3.3 mmol/L; ARTERIAL BLOOD O2 SATURATION 96.1 % (94-98)
[2016-06-26] MEDS: PIPERACILLIN SODIUM/TAZOBACTAM 3.375 GM in NORMAL SALINE 100 ML IV SCH ×4 (05:55→23:05)
[2016-06-26] MEDS: METOPROLOL TARTRATE 50 MG TABLET PO SCH ×2 (05:56→18:26)
[2016-06-26] MEDS: MIDAZOLAM HCL 100 ML IV PRN ×2 (05:57→18:23)
--- NOTE | 2016-06-26 09:03 | PDOC PROGRESS REPORT ---
Subjective Progress Note for:: 06/26/16 Subjective:: intubated Physical Exam Vital Signs: Temp Pulse Resp BP Pulse Ox 98.0 F 80 24 H 125/60 100 06/26/16 08:00 06/26/16 08:00 06/26/16 08:00 06/26/16 08:00 06/26/16 08:00 Intake & Output 06/25/16 06/26/16 06/27/16 06:59 06:59 06:59 Intake Total 3640 4264 Output Total 855 1330 125 Balance 2785 2934 -125 Weight 85.4 kg 86.7 kg General appearance: PRESENT: no acute distress, disheveled Head exam: PRESENT: atraumatic, normocephalic Eye exam: PRESENT: conjunctiva pale Mouth exam: PRESENT: dry mucosa, neck supple, other - Et tube Neck exam: ABSENT: carotid bruit, JVD, lymphadenopathy, thyromegaly Respiratory exam: PRESENT: decreased breath sounds, prolonged expiratory phas, rhonchi, symmetrical, unlabored Cardiovascular exam: PRESENT: RRR, +S1, +S2 Pulses: PRESENT: normal radial pulses GI/Abdominal exam: PRESENT: normal bowel sounds, soft. ABSENT: distended, guarding, mass, organolmegaly, rebound, tenderness Rectal exam: PRESENT: deferred Gentrourinary exam: PRESENT: indwelling catheter Musculoskeletal exam: PRESENT: normal inspection Skin exam: PRESENT: dry, warm Results Laboratory Results: 06/26/16 03:44 06/26/16 03:44 06/25/16 06/25/16 06/25/16 11:33 17:05 18:36 WBC RBC Hgb Hct MCV MCH MCHC RDW Plt Count Seg Neutrophils % Lymphocytes % Monocytes % Eosinophils % Basophils % Absolute Neutrophils Absolute Lymphocytes Absolute Monocytes Absolute Eosinophils Absolute Basophils Carbonic Acid 0.88 L 0.99 L Cancelled HCO3/H2CO3 Ratio 22:1 20:1 Cancelled ABG pH 7.45 7.42 Cancelled ABG pCO2 29.4 L 33.0 L Cancelled ABG pO2 134.7 H 94.5 Cancelled ABG HCO3 20.1 20.7 Cancelled ABG O2 Saturation 98.8 H 97.4 Cancelled ABG Base Excess -2.9 -3.1 Cancelled FiO2 35% 30% Cancelled Sodium Potassium Chloride Carbon Dioxide Anion Gap BUN Creatinine Est GFR ( Amer) Est GFR (Non-Af Amer) Glucose Calcium Phosphorus Magnesium Triglycerides 06/25/16 06/26/16 06/26/16 19:02 03:44 03:44 WBC 6.3 RBC 4.20 L Hgb 12.5 L Hct 37.4 L MCV 89 MCH 29.7 MCHC 33.4 RDW 14.9 H Plt Count 104 L Seg Neutrophils % 92.3 H Lymphocytes % 5.6 L Monocytes % 1.8 L Eosinophils % 0.2 Basophils % 0.1 Absolute Neutrophils 5.8 Absolute Lymphocytes 0.4 L Absolute Monocytes 0.1 Absolute Eosinophils 0.0 Absolute Basophils 0.0 Carbonic Acid 1.01 L HCO3/H2CO3 Ratio 20:1 ABG pH 7.41 ABG pCO2 33.6 L ABG pO2 88.4 ABG HCO3 21.0 ABG O2 Saturation 96.9 ABG Base Excess -2.8 FiO2 30% Sodium 136.1 L Potassium 4.5 Chloride 106 Carbon Dioxide 20 L Anion Gap 10 BUN 22 H Creatinine 1.01 Est GFR ( Amer) > 60 Est GFR (Non-Af Amer) > 60 Glucose 83 Calcium 8.3 L Phosphorus 3.2 Magnesium 1.8 Triglycerides 96 06/26/16 05:00 WBC RBC Hgb Hct MCV MCH MCHC RDW Plt Count Seg Neutrophils % Lymphocytes % Monocytes % Eosinophils % Basophils % Absolute Neutrophils Absolute Lymphocytes Absolute Monocytes Absolute Eosinophils Absolute Basophils Carbonic Acid 0.89 L HCO3/H2CO3 Ratio 21:1 ABG pH 7.44 ABG pCO2 29.5 L ABG pO2 78.2 L ABG HCO3 19.5 L ABG O2 Saturation 96.1 ABG Base Excess -3.3 FiO2 30% Sodium Potassium Chloride Carbon Dioxide Anion Gap BUN Creatinine Est GFR ( Amer) Est GFR (Non-Af Amer) Glucose Calcium Phosphorus Magnesium Triglycerides 06/22/16 21:45 Tracheal Aspirate Gram Stain - Final 06/22/16 21:45 Tracheal Aspirate Sputum Culture - Final NORMAL MARY 06/22/16 06/22/16 06/23/16 22:20 22:20 04:46 Creatine Kinase 356 H CK-MB (CK-2) 1.66 Troponin I 0.128 0.150 NT-Pro-B Natriuret Pep 43316 H 06/23/16 06/23/16 06/24/16 20:35 20:35 03:52 Creatine Kinase 779 H 1085 H CK-MB (CK-2) 1.20 Troponin I 0.091 NT-Pro-B Natriuret Pep 06/24/16 06/24/16 06/24/16 03:52 08:02 08:02 Creatine Kinase 1247 H Cancelled CK-MB (CK-2) 2.53 Troponin I 0.062 NT-Pro-B Natriuret Pep 06/24/16 06/24/16 06/24/16 08:02 10:38 10:38 Creatine Kinase 1137 H CK-MB (CK-2) 3.06 2.79 Troponin I 0.060 0.042 NT-Pro-B Natriuret Pep 06/24/16 06/24/16 06/24/16 16:18 16:18 22:30 Creatine Kinase 1160 H Cancelled CK-MB (CK-2) 2.56 Troponin I 0.043 NT-Pro-B Natriuret Pep 06/24/16 06/24/16 06/24/16 22:30 23:15 23:15 Creatine Kinase 1149 H CK-MB (CK-2) Cancelled 3.06 Troponin I Cancelled 0.038 NT-Pro-B Natriuret Pep Impressions: Head CT 06/23/16 00:00 IMPRESSION: No acute findings. Lines and tubes. Chest X-Ray 06/26/16 06:00 IMPRESSION: Good partial interval clearing of the lung [place]. Assessment & Plan - Diagnosis (1) Acute respiratory failure Is this a current diagnosis for this admission?: YesPlan: ABG acceptable some improvement long-term prognosis is poor (2) Cough Is this a current diagnosis for this admission?: No (3) Atrial fibrillation Qualifiers: Atrial fibrillation type: unspecified Qualified Code(s): I48.91 - Unspecified atrial fibrillation Is this a current diagnosis for this admission?: YesPlan: well control at this time (4) Thrombocytopenia Is this a current diagnosis for this admission?: YesPlan: Platelet count unchanged - Time Critical Time spent with patient: 35 or more minutes - 50 min
[2016-06-26] MEDS: AMIODARONE HCL 200 MG TABLET NG SCH (09:59)
[2016-06-26] MEDS: FAMOTIDINE INJ/PF 20 MG/2 ML SDV IV SCH ×2 (09:59→22:07)
[2016-06-26] MEDS: AMLODIPINE BESYLATE 5 MG TABLET NG SCH (10:00)
[2016-06-26] MEDS: ASPIRIN 81 MG TABLET, CHEWABLE NG SCH (10:00)
[2016-06-26] MEDS: DEXTROSE 5%-NORMAL SALINE 1,000 ML IV PRN ×2 (10:01→19:08)
[2016-06-26 10:44] LABS: ARTERIAL BLOOD BASE EXCESS -3.6 mmol/L; ARTERIAL BLOOD O2 SATURATION 95.9 % (94-98)
[2016-06-26] MEDS: ACETAMINOPHEN 325 MG TABLET NG PRN ×2 (11:10→22:08)
--- NOTE | 2016-06-26 11:19 | PDOC PROGRESS REPORT ---
Subjective Progress Note for:: 06/26/16 Subjective:: Patient is intubated and sedated Physical Exam Vital Signs: Temp Pulse Resp BP Pulse Ox 99.3 F 93 19 127/75 H 98 06/26/16 10:14 06/26/16 10:00 06/26/16 10:14 06/26/16 10:14 06/26/16 10:14 Intake & Output 06/25/16 06/26/16 06/27/16 06:59 06:59 06:59 Intake Total 3640 4264 Output Total 855 1330 200 Balance 2785 2934 -200 Weight 85.4 kg 86.7 kg General appearance: PRESENT: no acute distress Head exam: PRESENT: atraumatic, normocephalic Eye exam: PRESENT: conjunctiva pink. ABSENT: scleral icterus Ear exam: PRESENT: normal external ear exam Mouth exam: PRESENT: moist, tongue midline, other - ET tube in place Neck exam: ABSENT: JVD Respiratory exam: PRESENT: rales - Bibasilar rails improved from yesterday. ABSENT: rhonchi, wheezes Cardiovascular exam: PRESENT: irregular rhythm, tachycardia. ABSENT: diastolic murmur, rubs, systolic murmur GI/Abdominal exam: PRESENT: normal bowel sounds, soft. ABSENT: distended, guarding, mass, organolmegaly, rebound, tenderness Extremities exam: ABSENT: calf tenderness, clubbing, pedal edema Neurological exam: PRESENT: other - Intubated and sedated Psychiatric exam: PRESENT: other - Unable to assess Skin exam: PRESENT: dry, intact, warm. ABSENT: cyanosis, rash Results Laboratory Results: 06/26/16 03:44 06/26/16 03:44 06/25/16 06/25/16 06/25/16 11:33 17:05 18:36 WBC RBC Hgb Hct MCV MCH MCHC RDW Plt Count Seg Neutrophils % Lymphocytes % Monocytes % Eosinophils % Basophils % Absolute Neutrophils Absolute Lymphocytes Absolute Monocytes Absolute Eosinophils Absolute Basophils Carbonic Acid 0.88 L 0.99 L Cancelled HCO3/H2CO3 Ratio 22:1 20:1 Cancelled ABG pH 7.45 7.42 Cancelled ABG pCO2 29.4 L 33.0 L Cancelled ABG pO2 134.7 H 94.5 Cancelled ABG HCO3 20.1 20.7 Cancelled ABG O2 Saturation 98.8 H 97.4 Cancelled ABG Base Excess -2.9 -3.1 Cancelled FiO2 35% 30% Cancelled Sodium Potassium Chloride Carbon Dioxide Anion Gap BUN Creatinine Est GFR ( Amer) Est GFR (Non-Af Amer) Glucose Calcium Phosphorus Magnesium Triglycerides 06/25/16 06/26/16 06/26/16 19:02 03:44 03:44 WBC 6.3 RBC 4.20 L Hgb 12.5 L Hct 37.4 L MCV 89 MCH 29.7 MCHC 33.4 RDW 14.9 H Plt Count 104 L Seg Neutrophils % 92.3 H Lymphocytes % 5.6 L Monocytes % 1.8 L Eosinophils % 0.2 Basophils % 0.1 Absolute Neutrophils 5.8 Absolute Lymphocytes 0.4 L Absolute Monocytes 0.1 Absolute Eosinophils 0.0 Absolute Basophils 0.0 Carbonic Acid 1.01 L HCO3/H2CO3 Ratio 20:1 ABG pH 7.41 ABG pCO2 33.6 L ABG pO2 88.4 ABG HCO3 21.0 ABG O2 Saturation 96.9 ABG Base Excess -2.8 FiO2 30% Sodium 136.1 L Potassium 4.5 Chloride 106 Carbon Dioxide 20 L Anion Gap 10 BUN 22 H Creatinine 1.01 Est GFR ( Amer) > 60 Est GFR (Non-Af Amer) > 60 Glucose 83 Calcium 8.3 L Phosphorus 3.2 Magnesium 1.8 Triglycerides 96 06/26/16 06/26/16 05:00 10:32 WBC RBC Hgb Hct MCV MCH MCHC RDW Plt Count Seg Neutrophils % Lymphocytes % Monocytes % Eosinophils % Basophils % Absolute Neutrophils Absolute Lymphocytes Absolute Monocytes Absolute Eosinophils Absolute Basophils Carbonic Acid 0.89 L 1.05 HCO3/H2CO3 Ratio 21:1 19:1 ABG pH 7.44 7.39 ABG pCO2 29.5 L 34.8 L ABG pO2 78.2 L 80.6 ABG HCO3 19.5 L 20.7 ABG O2 Saturation 96.1 95.9 ABG Base Excess -3.3 -3.6 FiO2 30% 30% Sodium Potassium Chloride Carbon Dioxide Anion Gap BUN Creatinine Est GFR ( Amer) Est GFR (Non-Af Amer) Glucose Calcium Phosphorus Magnesium Triglycerides 06/23/16 14:23 Tracheal Aspirate Gram Stain - Final 06/23/16 14:23 Tracheal Aspirate Sputum Culture - Final C.albicans/C.dubliniensis Normal Kim 06/22/16 21:45 Tracheal Aspirate Gram Stain - Final 06/22/16 21:45 Tracheal Aspirate Sputum Culture - Final NORMAL KIM 06/22/16 06/22/16 06/23/16 22:20 22:20 04:46 Creatine Kinase 356 H CK-MB (CK-2) 1.66 Troponin I 0.128 0.150 NT-Pro-B Natriuret Pep 29436 H 06/23/16 06/23/16 06/24/16 20:35 20:35 03:52 Creatine Kinase 779 H 1085 H CK-MB (CK-2) 1.20 Troponin I 0.091 NT-Pro-B Natriuret Pep 06/24/16 06/24/16 06/24/16 03:52 08:02 08:02 Creatine Kinase 1247 H Cancelled CK-MB (CK-2) 2.53 Troponin I 0.062 NT-Pro-B Natriuret Pep 06/24/16 06/24/16 06/24/16 08:02 10:38 10:38 Creatine Kinase 1137 H CK-MB (CK-2) 3.06 2.79 Troponin I 0.060 0.042 NT-Pro-B Natriuret Pep 06/24/16 06/24/16 06/24/16 16:18 16:18 22:30 Creatine Kinase 1160 H Cancelled CK-MB (CK-2) 2.56 Troponin I 0.043 NT-Pro-B Natriuret Pep 06/24/16 06/24/16 06/24/16 22:30 23:15 23:15 Creatine Kinase 1149 H CK-MB (CK-2) Cancelled 3.06 Troponin I Cancelled 0.038 NT-Pro-B Natriuret Pep Impressions: Head CT 06/23/16 00:00 IMPRESSION: No acute findings. Lines and tubes. KUB X-Ray 06/26/16 00:00 IMPRESSION: No acute findings. NG tube overlies the left upper quadrant. Chest X-Ray 06/26/16 06:00 IMPRESSION: Good partial interval clearing of the lung [place]. Assessment & Plan - Diagnosis (1) Acute respiratory failure Is this a current diagnosis for this admission?: YesPlan: Secondary to pneumonia. The patient remains intubated and sedated. (2) Elevated troponin Is this a current diagnosis for this admission?: YesPlan: Most likely secondary to the stress of the underlying illness. (3) Pneumonia involving left lung Qualifiers: Pneumonia type: due to unspecified organism Lung location: unspecified part of lung Qualified Code(s): J18.9 - Pneumonia, unspecified organism Is this a current diagnosis for this admission?: YesPlan: Patient is on vancomycin, Levaquin and Zosyn. We'll continue to monitor his cultures which are negative so far. Pulmonary is following and we appreciate their assistance. (4) Atrial fibrillation Qualifiers: Atrial fibrillation type: unspecified Qualified Code(s): I48.91 - Unspecified atrial fibrillation Is this a current diagnosis for this admission?: YesPlan: Patient is currently rate control. Continue the amiodarone. (5) Anticoagulated Is this a current diagnosis for this admission?: YesPlan: Patient is on Eliquis for anticoagulation (6) CAD (coronary artery disease) Qualifiers: Coronary Disease-Associated Artery/Lesion type: [place] artery [place] vs. transplanted heart: [place] heart Associated angina: without angina Qualified Code(s): I25.10 - Atherosclerotic heart disease of [place] coronary artery without angina pectoris Is this a current diagnosis for this admission?: YesPlan: He has a positive troponins but this most likely secondary to the underlying pneumonia. - Time Time Spent with patient: 25-34 minutes - Inpatient Certification Medical Necessity: Need Close Monitoring Due to Risk of Patient Decompensation - Plan Summary Plan Summary: Continue with ventilator otherwise the patient is a DO NOT RESUSCITATE
[2016-06-26 13:29] LABS: CREATININE RESULT 0.95 mg/dL (0.52-1.25)
[2016-06-26] MEDS: MORPHINE SULFATE 10 MG/ML INJ IV PRN ×3 (15:23→23:06)
[2016-06-26] MEDS: LEVOFLOXACIN 750 MG/D5W RTU 750 MG/150 ML RTUPB IV SCH (22:09)
[2016-06-27] MEDS ORDERED: FUROSEMIDE INJ/PF 40 MG/4 ML SDV IV ONE (01:15)
[2016-06-27] MEDS: VANCOMYCIN HCL 1,250 MG in DEXTROSE 5%-WATER 250 ML IV SCH ×2 (01:54→13:23)
[2016-06-27] MEDS: IPRATROPIUM/ALBUTEROL 0.5-2.5 MG/3 ML AMPUL NEB SCH ×4 (02:36→20:42)
[2016-06-27 06:07] LABS: ARTERIAL BLOOD BASE EXCESS -4.8 mmol/L; ARTERIAL BLOOD O2 SATURATION 94.8 % (94-98)
[2016-06-27] MEDS: MIDAZOLAM HCL 100 ML IV PRN (06:09)
[2016-06-27] MEDS: DEXTROSE 5%-NORMAL SALINE 1,000 ML IV PRN ×2 (06:09→17:31)
[2016-06-27] MEDS: METOPROLOL TARTRATE 50 MG TABLET PO SCH ×2 (06:16→17:31)
[2016-06-27] MEDS: PIPERACILLIN SODIUM/TAZOBACTAM 3.375 GM in NORMAL SALINE 100 ML IV SCH ×4 (06:16→23:54)
[2016-06-27 08:00] LABS: ABSOLUTE LYMPHOCYTES (AUTO) 0.3 10^3/uL (0.5-4.7); ABSOLUTE MONOCYTES (AUTO) 0.1 10^3/uL (0.1-1.4); ABSOLUTE NEUT (AUTO) 4.5 10^3/uL (1.7-8.2); BASOPHILS % (AUTO) 0.4 % (0-2); EOSINOPHILS % (AUTO) 0.5 % (0-6); HEMATOCRIT 32.2 % (37.9-51.0); HEMOGLOBIN 10.8 g/dL (13.5-17.0); HGB HCT DIFFERENCE 0.2; LYMPHOCYTES % (AUTO) 6.9 % (13-45); MEAN CORPUSCULAR HGB CONC 33.5 g/dL (32.0-36.0); MEAN CORPUSCULAR VOLUME 90 fl (80-97); MONOCYTES % (AUTO) 2.6 % (3-13); RED BLOOD COUNT 3.59 10^6/uL (4.35-5.55); RED CELL DISTRIBUTION WIDTH 14.8 % (11.5-14.0); SEGMENTED NEUTROPHILS % (AUTO) 89.6 % (42-78); WHITE BLOOD COUNT 5.1 10^3/uL (4.0-10.5)
[2016-06-27 08:21] LABS: ANION GAP 11 (5-19); BLOOD UREA NITROGEN 25 mg/dL (7-20); CALCIUM 7.9 mg/dL (8.4-10.2); CARBON DIOXIDE 20 mmol/L (22-30); CHLORIDE 109 mmol/L (98-107); GLUCOSE 103 mg/dL (75-110); POTASSIUM 3.7 mmol/L (3.6-5.0); SODIUM 139.6 mmol/L (137-145)
[2016-06-27] MEDS: AMLODIPINE BESYLATE 5 MG TABLET NG SCH (09:23)
[2016-06-27] MEDS: ASPIRIN 81 MG TABLET, CHEWABLE NG SCH (09:30)
[2016-06-27] MEDS: FAMOTIDINE INJ/PF 20 MG/2 ML SDV IV SCH ×2 (09:30→21:30)
[2016-06-27] MEDS: AMIODARONE HCL 200 MG TABLET NG SCH (09:31)
--- NOTE | 2016-06-27 12:43 | PDOC PROGRESS REPORT ---
Subjective Progress Note for:: 06/27/16 Subjective:: Patient is intubated and sedated. He did receive Lasix last evening for evidence for volume overload. Physical Exam Vital Signs: Temp Pulse Resp BP Pulse Ox 98.6 F 70 17 98/55 L 98 06/27/16 12:00 06/27/16 09:16 06/27/16 11:00 06/27/16 10:39 06/27/16 11:00 Intake & Output 06/26/16 06/27/16 06/28/16 06:59 06:59 06:59 Intake Total 4264 3727 30 Output Total 1330 1305 575 Balance 2934 2422 -545 Weight 86.7 kg 89.6 kg Head exam: PRESENT: atraumatic, normocephalic Eye exam: PRESENT: conjunctiva pink. ABSENT: scleral icterus Ear exam: PRESENT: normal external ear exam Mouth exam: PRESENT: moist, tongue midline Neck exam: ABSENT: JVD Respiratory exam: PRESENT: crackles - Bilateral inspiratory crackles. ABSENT: rales, rhonchi, wheezes Cardiovascular exam: PRESENT: RRR. ABSENT: diastolic murmur, rubs, systolic murmur GI/Abdominal exam: PRESENT: normal bowel sounds, soft. ABSENT: distended, guarding, mass, organolmegaly, rebound, tenderness Extremities exam: ABSENT: calf tenderness, clubbing, pedal edema Neurological exam: PRESENT: other - Intubated and sedated. Psychiatric exam: PRESENT: other - Unable to assess Skin exam: PRESENT: dry, intact, warm. ABSENT: cyanosis, rash Results Laboratory Results: 06/27/16 07:45 06/27/16 07:45 06/26/16 06/27/16 06/27/16 12:58 06:00 07:45 WBC 5.1 RBC 3.59 L Hgb 10.8 L Hct 32.2 L MCV 90 MCH 30.0 MCHC 33.5 RDW 14.8 H Plt Count 108 L Seg Neutrophils % 89.6 H Lymphocytes % 6.9 L Monocytes % 2.6 L Eosinophils % 0.5 Basophils % 0.4 Absolute Neutrophils 4.5 Absolute Lymphocytes 0.3 L Absolute Monocytes 0.1 Absolute Eosinophils 0.0 Absolute Basophils 0.0 Carbonic Acid 1.30 HCO3/H2CO3 Ratio 16:1 ABG pH 7.31 L ABG pCO2 43.1 ABG pO2 79.7 L ABG HCO3 21.2 ABG O2 Saturation 94.8 ABG Base Excess -4.8 FiO2 50% Sodium Potassium Chloride Carbon Dioxide Anion Gap BUN Creatinine 0.95 Est GFR ( Amer) > 60 Est GFR (Non-Af Amer) > 60 Glucose Calcium 06/27/16 07:45 WBC RBC Hgb Hct MCV MCH MCHC RDW Plt Count Seg Neutrophils % Lymphocytes % Monocytes % Eosinophils % Basophils % Absolute Neutrophils Absolute Lymphocytes Absolute Monocytes Absolute Eosinophils Absolute Basophils Carbonic Acid HCO3/H2CO3 Ratio ABG pH ABG pCO2 ABG pO2 ABG HCO3 ABG O2 Saturation ABG Base Excess FiO2 Sodium 139.6 Potassium 3.7 Chloride 109 H Carbon Dioxide 20 L Anion Gap 11 BUN 25 H Creatinine 0.90 Est GFR ( Amer) > 60 Est GFR (Non-Af Amer) > 60 Glucose 103 Calcium 7.9 L 06/23/16 14:23 Tracheal Aspirate Gram Stain - Final 06/23/16 14:23 Tracheal Aspirate Sputum Culture - Final C.albicans/C.dubliniensis Normal Kim 06/22/16 06/22/16 06/23/16 22:20 22:20 04:46 Creatine Kinase 356 H CK-MB (CK-2) 1.66 Troponin I 0.128 0.150 NT-Pro-B Natriuret Pep 65587 H 06/23/16 06/23/16 06/24/16 20:35 20:35 03:52 Creatine Kinase 779 H 1085 H CK-MB (CK-2) 1.20 Troponin I 0.091 NT-Pro-B Natriuret Pep 06/24/16 06/24/16 06/24/16 03:52 08:02 08:02 Creatine Kinase 1247 H Cancelled CK-MB (CK-2) 2.53 Troponin I 0.062 NT-Pro-B Natriuret Pep 06/24/16 06/24/16 06/24/16 08:02 10:38 10:38 Creatine Kinase 1137 H CK-MB (CK-2) 3.06 2.79 Troponin I 0.060 0.042 NT-Pro-B Natriuret Pep 06/24/16 06/24/16 06/24/16 16:18 16:18 22:30 Creatine Kinase 1160 H Cancelled CK-MB (CK-2) 2.56 Troponin I 0.043 NT-Pro-B Natriuret Pep 06/24/16 06/24/16 06/24/16 22:30 23:15 23:15 Creatine Kinase 1149 H CK-MB (CK-2) Cancelled 3.06 Troponin I Cancelled 0.038 NT-Pro-B Natriuret Pep Impressions: Head CT 06/23/16 00:00 IMPRESSION: No acute findings. Lines and tubes. KUB X-Ray 06/26/16 00:00 IMPRESSION: No acute findings. NG tube overlies the left upper quadrant. Chest X-Ray 06/27/16 11:30 IMPRESSION: Recurrent diffuse bilateral airspace disease, edema versus ARDS versus pneumonia Endotracheal tube, nasogastric tube in good positioning Assessment & Plan - Diagnosis (1) Acute respiratory failure Is this a current diagnosis for this admission?: YesPlan: Secondary to pneumonia. The patient remains intubated and sedated. (2) Elevated troponin Is this a current diagnosis for this admission?: YesPlan: Most likely secondary to the stress of the underlying illness. (3) Pneumonia involving left lung Qualifiers: Pneumonia type: due to unspecified organism Lung location: unspecified part of lung Qualified Code(s): J18.9 - Pneumonia, unspecified organism Is this a current diagnosis for this admission?: YesPlan: Patient is on vancomycin, Levaquin and Zosyn. We'll continue to monitor his cultures which are negative so far. Pulmonary is following and we appreciate their assistance. (4) Atrial fibrillation Qualifiers: Atrial fibrillation type: unspecified Qualified Code(s): I48.91 - Unspecified atrial fibrillation Is this a current diagnosis for this admission?: YesPlan: Patient is currently rate control. Continue the amiodarone. (5) Anticoagulated Is this a current diagnosis for this admission?: YesPlan: Patient is on Eliquis for anticoagulation (6) CAD (coronary artery disease) Qualifiers: Coronary Disease-Associated Artery/Lesion type: [place] artery [place] vs. transplanted heart: [place] heart Associated angina: without angina Qualified Code(s): I25.10 - Atherosclerotic heart disease of [place] coronary artery without angina pectoris Is this a current diagnosis for this admission?: YesPlan: He has a positive troponins but this most likely secondary to the underlying pneumonia. - Time Time Spent with patient: 25-34 minutes - Inpatient Certification Medical Necessity: Need Close Monitoring Due to Risk of Patient Decompensation - Plan Summary Plan Summary: The patient's chest x-ray appears to be worse. The patient's family has stated that if he does not appear to be improving that they may request comfort care and will need to discuss this with them. His minute ventilation is improved but his FiO2 needs have increased.
[2016-06-27] MEDS: ACETAMINOPHEN 325 MG TABLET NG PRN (16:46)
[2016-06-27] MEDS ORDERED: ACETAMINOPHEN 650 MG SUPP.RECT PR ONE (17:56)
[2016-06-27] MEDS ORDERED: ACETAMINOPHEN 650 MG SUPP.RECT PR PRN (18:08)
[2016-06-27] MEDS: LEVOFLOXACIN 750 MG/D5W RTU 750 MG/150 ML RTUPB IV SCH (21:29)
[2016-06-28] MEDS: VANCOMYCIN HCL 1,250 MG in DEXTROSE 5%-WATER 250 ML IV SCH (02:18)
[2016-06-28] MEDS: IPRATROPIUM/ALBUTEROL 0.5-2.5 MG/3 ML AMPUL NEB SCH ×2 (02:25→08:49)
[2016-06-28] MEDS: MORPHINE SULFATE 10 MG/ML INJ IV PRN ×2 (04:53→09:17)
[2016-06-28] MEDS: PIPERACILLIN SODIUM/TAZOBACTAM 3.375 GM in NORMAL SALINE 100 ML IV SCH (05:00)
[2016-06-28] MEDS: METOPROLOL TARTRATE 50 MG TABLET PO SCH (05:00)
[2016-06-28 05:01] LABS: ABSOLUTE EOSINOPHILS # (AUTO) 0.1 10^3/uL (0.0-0.6); ABSOLUTE LYMPHOCYTES (AUTO) 0.6 10^3/uL (0.5-4.7); ABSOLUTE MONOCYTES (AUTO) 0.2 10^3/uL (0.1-1.4); ABSOLUTE NEUT (AUTO) 4.5 10^3/uL (1.7-8.2); BASOPHILS % (AUTO) 0.4 % (0-2); EOSINOPHILS % (AUTO) 1.9 % (0-6); HEMATOCRIT 32.7 % (37.9-51.0); HEMOGLOBIN 11.1 g/dL (13.5-17.0); HGB HCT DIFFERENCE 0.6; LYMPHOCYTES % (AUTO) 10.6 % (13-45); MEAN CORPUSCULAR HEMOGLOBIN 29.9 pg (27.0-33.4); MEAN CORPUSCULAR VOLUME 88 fl (80-97); MONOCYTES % (AUTO) 3.6 % (3-13); RED BLOOD COUNT 3.72 10^6/uL (4.35-5.55); RED CELL DISTRIBUTION WIDTH 15.1 % (11.5-14.0); SEGMENTED NEUTROPHILS % (AUTO) 83.5 % (42-78); WHITE BLOOD COUNT 5.5 10^3/uL (4.0-10.5)
[2016-06-28 05:19] LABS: ANION GAP 12 (5-19); BLOOD UREA NITROGEN 29 mg/dL (7-20); CARBON DIOXIDE 19 mmol/L (22-30); CHLORIDE 109 mmol/L (98-107); CREATININE RESULT 1.08 mg/dL (0.52-1.25); GLUCOSE 109 mg/dL (75-110); POTASSIUM 3.7 mmol/L (3.6-5.0); SODIUM 140.2 mmol/L (137-145)
[2016-06-28] MEDS: ACETAMINOPHEN 325 MG TABLET NG PRN (05:51)
[2016-06-28] MEDS: DEXTROSE 5%-NORMAL SALINE 1,000 ML IV PRN (05:51)
[2016-06-28 05:58] LABS: ARTERIAL BLOOD BASE EXCESS -3.9 mmol/L; ARTERIAL BLOOD O2 SATURATION 92.4 % (94-98)
[2016-06-28] MEDS: AMIODARONE HCL 200 MG TABLET NG SCH (09:04)
[2016-06-28] MEDS: AMLODIPINE BESYLATE 5 MG TABLET NG SCH (09:04)
[2016-06-28] MEDS: ASPIRIN 81 MG TABLET, CHEWABLE NG SCH (09:19)
[2016-06-28] MEDS: FAMOTIDINE INJ/PF 20 MG/2 ML SDV IV SCH (09:19)
--- NOTE | 2016-06-28 10:28 | Death Summary ---
Summary Date : 06/28/16 Time of :: 09:40 Autopsy: No Resuscitation Status: Do Not Resuscitate Primary Care Provider: Dr. Cottrell - Final Diagnosis (1) Acute respiratory failure Is this a current diagnosis for this admission?: Yes (2) Pneumonia involving left lung Is this a current diagnosis for this admission?: Yes (3) Elevated troponin Is this a current diagnosis for this admission?: Yes (4) Atrial fibrillation Is this a current diagnosis for this admission?: Yes (5) Anticoagulated Is this a current diagnosis for this admission?: Yes (6) CAD (coronary artery disease) Is this a current diagnosis for this admission?: Yes Hospital Course:: 85-year-old gentleman who presented with shortness of breath was found to have a pneumonia. The patient was started on broad-spectrum antibiotics however declined and required transfer to the intensive care unit and intubation. The patient's family brought in his living will from home stating he did not want aggressive measures done. Patient however was intubated and the family agreed that we would continue with intubation to see if he would improve but would not escalate treatment any than that. The patient failed to improve and actually worsened with acquiring more oxygen. Decision made to make patient comfort care and extubate. Patient extubated on 06/28/2012 and at 9:40 AM. Cause of is pneumonia.
[2016-06-28 10:56] VITALS: BP 94/52
--- NOTE | 2016-07-04 16:32 | PDOC PROGRESS REPORT ---
Subjective Progress Note for:: 06/27/16 Subjective:: intubated Physical Exam Vital Signs: Temp Pulse Resp BP Pulse Ox 98.4 F 70 24 H 93/54 L 97 06/27/16 10:00 06/27/16 09:16 06/27/16 09:16 06/27/16 06:25 06/27/16 09:16 Intake & Output 06/26/16 06/27/16 06/28/16 06:59 06:59 06:59 Intake Total 4264 3727 Output Total 1330 1305 450 Balance 2934 2422 -450 Weight 86.7 kg 89.6 kg General appearance: PRESENT: no acute distress, disheveled, well-developed, well -nourished Head exam: PRESENT: atraumatic, normocephalic Eye exam: PRESENT: conjunctiva pale Mouth exam: PRESENT: dry mucosa, neck supple Neck exam: ABSENT: carotid bruit, JVD, lymphadenopathy, thyromegaly Respiratory exam: PRESENT: decreased breath sounds, prolonged expiratory phas, rales, rhonchi, symmetrical, unlabored Cardiovascular exam: PRESENT: irregular rhythm Pulses: PRESENT: normal radial pulses GI/Abdominal exam: PRESENT: normal bowel sounds, soft. ABSENT: distended, guarding, mass, organolmegaly, rebound, tenderness Rectal exam: PRESENT: deferred Gentrourinary exam: PRESENT: indwelling catheter Skin exam: PRESENT: dry, warm Results Laboratory Results: 06/27/16 07:45 06/27/16 07:45 06/26/16 06/27/16 06/27/16 12:58 06:00 07:45 WBC 5.1 RBC 3.59 L Hgb 10.8 L Hct 32.2 L MCV 90 MCH 30.0 MCHC 33.5 RDW 14.8 H Plt Count 108 L Seg Neutrophils % 89.6 H Lymphocytes % 6.9 L Monocytes % 2.6 L Eosinophils % 0.5 Basophils % 0.4 Absolute Neutrophils 4.5 Absolute Lymphocytes 0.3 L Absolute Monocytes 0.1 Absolute Eosinophils 0.0 Absolute Basophils 0.0 Carbonic Acid 1.30 HCO3/H2CO3 Ratio 16:1 ABG pH 7.31 L ABG pCO2 43.1 ABG pO2 79.7 L ABG HCO3 21.2 ABG O2 Saturation 94.8 ABG Base Excess -4.8 FiO2 50% Sodium Potassium Chloride Carbon Dioxide Anion Gap BUN Creatinine 0.95 Est GFR ( Amer) > 60 Est GFR (Non-Af Amer) > 60 Glucose Calcium 06/27/16 07:45 WBC RBC Hgb Hct MCV MCH MCHC RDW Plt Count Seg Neutrophils % Lymphocytes % Monocytes % Eosinophils % Basophils % Absolute Neutrophils Absolute Lymphocytes Absolute Monocytes Absolute Eosinophils Absolute Basophils Carbonic Acid HCO3/H2CO3 Ratio ABG pH ABG pCO2 ABG pO2 ABG HCO3 ABG O2 Saturation ABG Base Excess FiO2 Sodium 139.6 Potassium 3.7 Chloride 109 H Carbon Dioxide 20 L Anion Gap 11 BUN 25 H Creatinine 0.90 Est GFR ( Amer) > 60 Est GFR (Non-Af Amer) > 60 Glucose 103 Calcium 7.9 L 06/23/16 14:23 Tracheal Aspirate Gram Stain - Final 06/23/16 14:23 Tracheal Aspirate Sputum Culture - Final C.albicans/C.dubliniensis Normal Kim 06/22/16 06/22/16 06/23/16 22:20 22:20 04:46 Creatine Kinase 356 H CK-MB (CK-2) 1.66 Troponin I 0.128 0.150 NT-Pro-B Natriuret Pep 75175 H 06/23/16 06/23/16 06/24/16 20:35 20:35 03:52 Creatine Kinase 779 H 1085 H CK-MB (CK-2) 1.20 Troponin I 0.091 NT-Pro-B Natriuret Pep 06/24/16 06/24/16 06/24/16 03:52 08:02 08:02 Creatine Kinase 1247 H Cancelled CK-MB (CK-2) 2.53 Troponin I 0.062 NT-Pro-B Natriuret Pep 06/24/16 06/24/16 06/24/16 08:02 10:38 10:38 Creatine Kinase 1137 H CK-MB (CK-2) 3.06 2.79 Troponin I 0.060 0.042 NT-Pro-B Natriuret Pep 06/24/16 06/24/16 06/24/16 16:18 16:18 22:30 Creatine Kinase 1160 H Cancelled CK-MB (CK-2) 2.56 Troponin I 0.043 NT-Pro-B Natriuret Pep 06/24/16 06/24/16 06/24/16 22:30 23:15 23:15 Creatine Kinase 1149 H CK-MB (CK-2) Cancelled 3.06 Troponin I Cancelled 0.038 NT-Pro-B Natriuret Pep Impressions: Head CT 06/23/16 00:00 IMPRESSION: No acute findings. Lines and tubes. KUB X-Ray 06/26/16 00:00 IMPRESSION: No acute findings. NG tube overlies the left upper quadrant. Chest X-Ray 06/27/16 11:30 IMPRESSION: Recurrent diffuse bilateral airspace disease, edema versus ARDS versus pneumonia Endotracheal tube, nasogastric tube in good positioning Assessment & Plan - Diagnosis (1) Acute respiratory failure Is this a current diagnosis for this admission?: YesPlan: long-term prognosis is poor (2) Cough Is this a current diagnosis for this admission?: No (3) Atrial fibrillation Qualifiers: Atrial fibrillation type: unspecified Qualified Code(s): I48.91 - Unspecified atrial fibrillation Is this a current diagnosis for this admission?: YesPlan: well control at this time (4) Thrombocytopenia Is this a current diagnosis for this admission?: YesPlan: Platelet count unchanged - Time Critical Time spent with patient: 35 or more minutes - 45 min
== END 2016-06-28 09:41 | DRG 207 ==
LOC: ER 21:53 → EH 06-22 02:17 → UNDOADMIN 06-22 02:17 → EH 06-22 11:32 → 5 06-22 11:32 → ICU 06-22 20:43
PROVIDERS: ADMIT Family Medicine; ATTEND Family Medicine
PROC: 5A1955Z Respiratory Ventilation, Greater than 96 Consecutive Hours (ICD-10-PCS; principal; 2016-06-22)
PROC: 0BH17EZ Insertion of Endotracheal Airway into Trachea, Via Natural or Artificial Opening (ICD-10-PCS; 2016-06-22)
DX: J18.9 Pneumonia, unspecified organism (principal); J96.00 Acute respiratory failure, unspecified whether with hypoxia or hypercapnia; I48.91 Unspecified atrial fibrillation; Z51.5 Encounter for palliative care; I25.10 Atherosclerotic heart disease of native coronary artery without angina pectoris; I10 Essential (primary) hypertension; K44.9 Diaphragmatic hernia without obstruction or gangrene; D69.6 Thrombocytopenia, unspecified; R74.8 Abnormal levels of other serum enzymes; M19.90 Unspecified osteoarthritis, unspecified site; H91.90 Unspecified hearing loss, unspecified ear; Z66 Do not resuscitate; Z95.5 Presence of coronary angioplasty implant and graft; Z87.11 Personal history of peptic ulcer disease; Z87.442 Personal history of urinary calculi; Z85.828 Personal history of other malignant neoplasm of skin; Z79.82 Long term (current) use of aspirin; Z79.01 Long term (current) use of anticoagulants; I25.2 Old myocardial infarction; Z88.8 Allergy status to other drugs, medicaments and biological substances; Z78.1 Physical restraint status
CPT/HCPCS: 31500; 36415; 70450; 71010; 74000; 80048; 80053; 80202; 81001; 82550; 82553; 82565; 82803; 82962; 83605; 83735; 83880; 84100; 84443; 84478; 84484; 85025; 85610; 87040; 87070; 87086; 87205; 87804; 93005; 93010; 93306; 94002; 94003; 94640; 96365; 96366; 99285; J0330; J0456; J0696; J1200; J1940; J1956; J2250; J2270; J2543; J2704; J3370; J3480; J3490; J7030; J7060; J7620; S0028